=== PATIENT | male | born 2000 | race Caucasian/White ===

== ENCOUNTER 2021-09-02 11:16 | Emergency (ER) | payer OTHER, SELFPAY ==
[2021-09-02 11:19] VITALS: BP 149/77; PULSE 86; RESP 18; TEMP 36.6; O2SAT 99
[2021-09-02] MEDS: ONDANSETRON HCL ODT 4 MG TABLET PO (11:37)
[2021-09-02] MEDS: DICYCLOMINE HCL INJ 20 MG/2 ML VIAL IM (11:42)
--- NOTE | 2021-09-02 11:59 | ED.NAVMDI ---
HPI - Nausea/Vomiting/Diarrhea General Chief complaint: Nausea/Vomiting/Diarrhea Stated complaint: vomiting x 3 days after eating shrooms Time Seen by Provider: 09/02/21 11:21 History of Present Illness HPI Narrative: 20-year-old male presents the emergency room for evaluation of nausea or vomiting. States 3 days ago he was eating mushrooms, and developed nausea vomiting and abdominal pain. States he was seen at an outside emergency room yesterday and was rehydrated and sent home with antiemetics. Patient states now when he uses the Zofran it causes him to throw up. Related Data Allergies Allergy/AdvReac Type Severity Reaction Status Date / Time No Known Allergies Allergy Unverified 08/06/10 21:18 Review of Systems Review of Systems: CONSTITUTIONAL: Denies fever, chills, or sweats. EYES: Denies visual changes, redness, or discharge. ENT: Denies rhinorrhea, congestion, sore throat, or otalgia. CARDIOVASCULAR: Denies chest pain, palpitations, or edema. RESPIRATORY: Denies cough or dyspnea. GASTROINTESTINAL: Reports abdominal pain, nausea, vomiting, and diarrhea. GENITOURINARY: Denies dysuria or hematuria. SKIN: Denies rash or itching. MUSCULOSKELETAL: Denies back pain, joint pain, or myalgia. NEUROLOGIC: Denies headache, numbness, dizziness, or weakness. PSYCHIATRIC: Denies anxiety or depression. Exam Narrative: GENERAL: Well-appearing, well-nourished, no physical limitations, and in no acute distress. HEAD: Normocephalic, atraumatic. EYES: Conjunctivae normal, PERRLA and EOMI. CHEST: Clear to auscultation. No respiratory distress. No wheezes rales or rhonchi. No tenderness. HEART: Regular rate and rhythm. No murmur heard. Normal peripheral pulses. ABDOMEN: Soft, generalized diffuse tenderness, nondistended, normal active bowel sounds. EXTREMITIES: Normal range of motion. No edema. No clubbing or cyanosis SKIN: Warm, dry, no rash. No noted wounds NEURO: No focal deficits. Alert and oriented x3. MAEW. CN's II-XI intact bilaterally, normal gait PSYCH: Cooperative. Normal mood and affect. Course Vital Signs Vital signs: Vital Signs Temperature 36.6 C 09/02/21 11:19 Pulse Rate 86 09/02/21 11:19 Respiratory Rate 18 09/02/21 11:19 Blood Pressure 149/77 H 09/02/21 11:19 Pulse Oximetry 99 09/02/21 11:19 Oxygen Delivery Room Air 09/02/21 11:19 Temperature 36.6 C 09/02/21 11:19 Pulse Rate 86 09/02/21 11:19 Respiratory Rate 18 09/02/21 11:19 Blood Pressure 149/77 H 09/02/21 11:19 Pulse Oximetry 99 09/02/21 11:19 Oxygen Delivery Room Air 09/02/21 11:19 MDM - Nausea/Vomiting/Diarrhea Lab Data Result diagrams: 09/02/21 14:06 09/02/21 14:06 Labs: Lab Results 09/02/21 09/02/21 09/02/21 Range/Units 13:50 13:50 14:06 WBC 11.3 H (4.5-10.0) K/mm3 RBC 4.78 (4.6-6.20) M/mm3 Hgb 15.0 (14.0-18.0) g/dL Hct 42.4 (42.0-52.0) % MCV 88.7 (80-100) fl MCH 31.4 (26-34) pg MCHC 35.4 (32-36) g/dl RDW 12.0 (11.5-14.5) % Plt Count 252 (150-375) k/mm3 MPV 10.5 H (7.4-10.4) fl Immature Gran % (Auto) 0.4 (0-0.5) % Neut % (Auto) 81.4 H (45.5-73.1) % Lymph % (Auto) 12.5 L (18.3-44.2) % [place] % (Auto) 5.4 (2.6-8.5) % Eos % (Auto) 0.1 (0-4.4) % Baso % (Auto) 0.2 (0.2-1.2) % Lymph # (Auto) 1.41 (0.9-3.2) K/mm3 [place] # (Auto) 0.6 (0.1-0.6) K/mm3 Eos # (Auto) 0.0 (0-0.3) K/mm3 Baso # (Auto) 0.0 (0.0-0.1) K/mm3 Abs Immat Gran (auto) 0.04 H (0.00-0.031) K/mm3 Absolute Neuts (auto) 9.2 H (1.3-6.7) K/mm3 Absolute Nucleated RBC 0.0 (0.0-0.012) K/mm3 Nucleated RBC % 0.0 (0.0-0.2) % Sodium (137-145) mmol/L Potassium (3.4-5.0) mmol/L Chloride (98-107) mmol/L Carbon Dioxide (22-30) mmol/L Anion Gap (8-16) mmol/L BUN (9-20) mg/dL Creatinine (0.7-1.3) mg/dL Estim Creat Clear Calc Estimated GFR (59 - ) Glucose (65-1
[2021-09-02] MEDS: SODIUM CHLORIDE 0.9% IV 1,000 ML 999 ML IV CONT ×2 (12:07→14:52)
--- NOTE | 2021-09-02 12:54 | ECG_ITS ---
Measurements Intervals [place] Rate: 62 P: 71 GA: 141 QRS: -58 QRSD: 89 T: 56 QT: 432 QTc: 442 Interpretive Statements SINUS RHYTHM LEFT ANTERIOR FASCICULAR BLOCK CANNOT RULE OUT SEPTAL INFARCT, AGE INDETERMINATE BORDERLINE T WAVE ABNORMALITY- ANTERIOR LEADS ABNORMAL ECG Electronically Signed On 09-02-2021 16:07:21 CDT by Andrew Beth D.O.
[2021-09-02 14:11] LABS: Add Urine Microscopic? YES; Appearance Urine Clear (Clear); Bilirubin Urine 2+ (Negative); Blood Urine Negative (Negative); Color Urine Yellow (Yellow); Glucose Urine UA Negative (Negative); Ketones Urine 2+ mg/dL (Negative); Leukocyte Esterase Ur Negative LEU/UL (Negative); Nitrate Urine Negative (Negative); Protein Urine 1+ mg/dL (Negative); Specific Grav Ur >= 1.030 (1.001-1.035); Urobilinogen Urine 0.2 mg/dL (<2.0)
[2021-09-02] MEDS: diphenhydrAMINE HCl INJ 50 MG/ML VIAL 25 MG IV PUSH (14:16)
[2021-09-02] MEDS: METOCLOPRAMIDE HCL INJ 10 MG/2 ML VIAL IV PUSH (14:19)
[2021-09-02 14:22] LABS: Amphetamine Screen Urine Negative (Negative); Barbiturate Screen Urine Negative (Negative); Benzodiazepines Screen Urine Negative (Negative); Cannabinoid Screen Urine Positive (Negative); Cocaine Screen Urine Negative (Negative); Methadone Screen Urine Negative (Negative); Opiate Screen Urine Negative (Negative); Phencyclidine Screen Urine Negative (Negative)
[2021-09-02 14:28] LABS: Alanine Aminotransferase 14 U/L (6-50); Albumin Level 4.8 g/dL (3.5-5.1); Alkaline Phosphatase 67 U/L (38-126); Anion Gap 8 mmol/L (8-16); Aspartate Amino Transferase 30 U/L (17-59); Bilirubin,Total 1.3 mg/dL (0.2-1.3); Blood Urea Nitrogen 23 mg/dL (9-20); Carbon Dioxide 21 mmol/L (22-30); Chloride 109 mmol/L (98-107); Estimated Glomerular Filt Rate > 60; Glucose 105 mg/dL (65-110); Lipase 59 U/L (23-300); Potassium 3.7 mmol/L (3.4-5.0); Sodium 138 mmol/L (137-145)
[2021-09-02 14:28] LABS: Mucus Urine Heavy /lpf; RBC Urine 0-2 /hpf (0-2); WBC Urine 0-3 /hpf
[2021-09-02 14:31] LABS: Basophils Percent Auto 0.2 % (0.2-1.2); Eosinophils Percent Auto 0.1 % (0-4.4); Hematocrit 42.4 % (42.0-52.0); Immature Granulocyte Absolute 0.04 K/mm3 (0.00-0.031); Immature Granulocyte Percent A 0.4 % (0-0.5); Lymphocytes Absolute Auto 1.41 K/mm3 (0.9-3.2); Lymphocytes Percent Auto 12.5 % (18.3-44.2); Mean Corpuscular HGB Conc 35.4 g/dl (32-36); Mean Corpuscular Hemoglobin 31.4 pg (26-34); Mean Corpuscular Volume 88.7 fl (80-100); Mean Platelet Volume 10.5 fl (7.4-10.4); Monocytes Absolute Auto 0.6 K/mm3 (0.1-0.6); Monocytes Percent Auto 5.4 % (2.6-8.5); Neutrophils Absolute Auto 9.2 K/mm3 (1.3-6.7); Neutrophils Percent Auto 81.4 % (45.5-73.1); Platelet Count Result 252 k/mm3 (150-375); Red Blood Count 4.78 M/mm3 (4.6-6.20); White Blood Count 11.3 K/mm3 (4.5-10.0)
[2021-09-02] MEDS: HALOPERIDOL LACTATE 5 MG/ML VIAL 2 MG IV PUSH (14:52)
== END 2021-09-02 15:30 | disposition home or self-care (01) ==
PROVIDERS: Emergency Provider Nurse Practitioner Family; PCP Nurse Practitioner Family
DX: R11.2 Nausea with vomiting, unspecified (principal); F12.90 Cannabis use, unspecified, uncomplicated
CPT/HCPCS: 36415; 80053; 80307; 81001; 83690; 85025; 93005; 96361; 96372; 96374; 96375; 99284; A9270; J0500; J1200; J1630; J2765; J7030

== ENCOUNTER 2021-09-04 11:31 | Emergency (ER) | payer OTHER, SELFPAY ==
--- NOTE | ~2021-09-04 | CT_ITS ---
EXAMINATION: CT abdomen pelvis w con DATE: 09/04/2021 13:05 INDICATION: Right lower abdominal pain TECHNIQUE: Computed tomography (CT) of the abdomen and pelvis was performed with 100 mL Omnipaque-300 intravenous contrast. Automated exposure control and iterative reconstruction technique were employe d. The dose-length product was 200.37 mGy-cm. COMPARISON: None FINDINGS: Lung bases are clear. Heart size is normal. No pericardial or pleural effusion. Liver, gallbladder, s pleen, pancreas, bilateral adrenal glands and kidneys are normal. Instantly noted are accessory right renal artery supplying the lower pole of the right kidney. Bowels including the appendix are normal. Bladder is normal. No free intraperitoneal gas or fluid. No pathologically enlarged abdominal or pel andrew lymphadenopathy. Mild lumbar levocurvature. Bones are otherwise unremarkable. IMPRESSION: 1. Normal appendix. No acute abdominal/pelvic process. Reviewed, dictated and finalized at location B.
[2021-09-04 11:35] VITALS: BP 139/87; PULSE 72; RESP 18; TEMP 36.5; O2SAT 100
--- NOTE | 2021-09-04 12:17 | ECG_ITS ---
Measurements Intervals [place] Rate: 55 P: 71 IL: 150 QRS: -42 QRSD: 89 T: 51 QT: 441 QTc: 424 Interpretive Statements SINUS BRADYCARDIA LEFT AXIS DEVIATION BORDERLINE ECG Electronically Signed On 09-04-2021 12:53:54 CDT by Andrew Beth D.O.
[2021-09-04 12:20] LABS: Basophils Percent Auto 0.5 % (0.2-1.2); Eosinophils Absolute Auto 0.1 K/mm3 (0-0.3); Eosinophils Percent Auto 1.1 % (0-4.4); Hematocrit 42.1 % (42.0-52.0); Hemoglobin 15.2 g/dL (14.0-18.0); Immature Granulocyte Absolute 0.02 K/mm3 (0.00-0.031); Immature Granulocyte Percent A 0.3 % (0-0.5); Lymphocytes Absolute Auto 1.48 K/mm3 (0.9-3.2); Lymphocytes Percent Auto 22.7 % (18.3-44.2); Mean Corpuscular HGB Conc 36.1 g/dl (32-36); Mean Corpuscular Hemoglobin 31.3 pg (26-34); Mean Corpuscular Volume 86.8 fl (80-100); Mean Platelet Volume 10.2 fl (7.4-10.4); Monocytes Absolute Auto 0.5 K/mm3 (0.1-0.6); Monocytes Percent Auto 6.9 % (2.6-8.5); Neutrophils Absolute Auto 4.5 K/mm3 (1.3-6.7); Neutrophils Percent Auto 68.5 % (45.5-73.1); Platelet Count Result 236 k/mm3 (150-375); Red Blood Count 4.85 M/mm3 (4.6-6.20); Red Cell Distribution Width 11.7 % (11.5-14.5); White Blood Count 6.5 K/mm3 (4.5-10.0)
[2021-09-04] MEDS: LACTATED RINGERS 1,000 ML 999 ML IV CONT (12:24)
[2021-09-04 12:28] LABS: Alanine Aminotransferase 14 U/L (6-50); Albumin Level 4.8 g/dL (3.5-5.1); Alkaline Phosphatase 70 U/L (38-126); Anion Gap 7 mmol/L (8-16); Aspartate Amino Transferase 27 U/L (17-59); Bilirubin,Total 1.6 mg/dL (0.2-1.3); Blood Urea Nitrogen 16 mg/dL (9-20); Calcium 9.2 mg/dL (8.4-10.2); Carbon Dioxide 27 mmol/L (22-30); Chloride 103 mmol/L (98-107); Estimated CRCL calculation 102 ml/min; Estimated Glomerular Filt Rate > 60; Glucose 100 mg/dL (65-110); Lipase 56 U/L (23-300); Potassium 3.8 mmol/L (3.4-5.0); Sodium 137 mmol/L (137-145)
[2021-09-04] MEDS: HALOPERIDOL LACTATE 5 MG/ML VIAL IM (12:42)
--- NOTE | 2021-09-04 12:43 | ED.NAVMDI ---
HPI - Nausea/Vomiting/Diarrhea General Chief complaint: Nausea/Vomiting/Diarrhea Stated complaint: Vomiting/Nausea Time Seen by Provider: 09/04/21 12:02 Source: patient, RN notes reviewed and old records reviewed Mode of arrival: ambulatory Limitations: no limitations History of Present Illness HPI Narrative: This is a 20 year old male who presents for evaluation of nausea and vomiting. Patient states he took some shrooms 5 days ago. He states the next day he developed nausea and vomiting. He reports he has been having bilious emesis for 4 days. He developed right lower abdominal pain 2 days ago. He reports he mostly has pain when he is vomiting. He was evaluated at [place] 2 days ago and he states he had labs , CT . He was discharged. He states his PCP prescribed rectal antiemetic. Patient was also seen in [place] ED 2 days ago. He states he as been taking zofran without relief. He states he had rectal antiemetic at 7 am and he took zofran at 10 am. He reports he has episode of bilious emesis just prior to arrival. He denies fever, chills, diarrhea or urinary symptoms. He states he does smoke cannabis every day until his symptoms started. Related Data Allergies Allergy/AdvReac Type Severity Reaction Status Date / Time No Known Allergies Allergy Verified 09/04/21 11:38 Review of Systems Review of Systems: All systems reviewed & are unremarkable except as noted in HPI and below Constitutional: Constitutional: Denies chills, Denies fatigue and Denies fever(s) Gastrointestinal: Gastrointestinal: Reports abdominal pain, Denies diarrhea, Reports nausea and Reports vomiting Genitourinary: Genitourinary: Denies hematuria, Denies oliguria and Denies testicular pain Musculoskeletal: Musculoskeletal: Denies back pain [facility] Past Medical History Medical History (Updated 09/04/21 @ 13:51 by Radha Lakhani MD) Heart palpitations Exam Const: General: alert Nutritional Appearance: thin Orientation/consciousness: patient oriented x3 Limitations: no limitations HENMT: Head: normal to inspection Mouth: Yes Normal oral and palatal mucosa present Throat: posterior oropharynx normal Eyes: Pupils: Equal, round and reactive pupils present EOM: EOMs intact bilaterally Chest: Chest palpation & inspection: normal inspection of the chest Resp: Effort & Inspection: normal respiratory effort Auscultation: clear to auscultation bilaterally Cardio: Rate: regular rate Rhythm: regular rhythm Heart sounds: no murmurs GI: GI Palp: Yes Soft to palpation, Yes Tenderness to palpation present (GI) (Diffuse worse in RLQ), No Guarding due to palpation present (GI), No Rigid due to palpation and No Hernia present Auscultation: normal bowel sounds Back/Spine/Pelvis: Back: no CVA tenderness Skin: General skin exam: normal color Rashes: no rashes Wounds: no wounds Neuro: General: patient oriented x3 and CN's II-XI intact bilaterally Extrem: General: normal to inspection Psych: Mental Status: mental status grossly normal Affect: normal affect Attitude: cooperative Course Reevaluation(s) Reevaluation #1: PAtient states he is ready to go. He was able to hold water down. I offered to observe longer so we could make sure he has improved. HE states is ready for discharge. Date: 09/04/21 Time: 13:48 Vital Signs Vital signs: Vital Signs Temperature 97.7 F 09/04/21 11:35 Pulse Rate 72 09/04/21 11:35 Respiratory Rate 18 09/04/21 11:35 Blood Pressure 139/87 09/04/21 11:35 Pulse Oximetry 100 09/04/21 11:35 Oxygen Delivery Room Air 09/04/21 11:35 Temperature 97.7 F 09/04/21 11:35 Pulse Rate 60 09/04/21 13:08 Respiratory Rate 18 09/04/21 13:08 Blood Pressure 132/78 09/04/21 13:08 Pulse Oximetry 99 09/04/21 13:08 Oxygen Delivery Room Air 09/04/21 11:35 MDM - Nausea/Vomiting/Diarrhea Lab Data Result diagrams: 09/04/21 11:54 09/04/21 11:54 [place]
[2021-09-04] MEDS: PANTOPRAZOLE SODIUM IV 40 MG VIAL IV PUSH (13:07)
[2021-09-04 13:08] VITALS: BP 132/78; PULSE 60; RESP 18; O2SAT 99
[2021-09-04 13:46] LABS: Appearance Urine Clear (Clear); Bilirubin Urine 1+ (Negative); Blood Urine Negative (Negative); Color Urine Yellow (Yellow); Glucose Urine UA Negative (Negative); Ketones Urine 3+ mg/dL (Negative); Leukocyte Esterase Ur Negative LEU/UL (Negative); Nitrate Urine Negative (Negative); Protein Urine Negative (Negative); pH Urine 5.5 (5.0-9.0)
[2021-09-04 13:52] LABS: Mucus Urine Moderate /lpf; RBC Urine 0-2 /hpf (0-2); Squamous Epithelial Cell Urine Rare /hpf (Few)
[2021-09-04 13:56] LABS: Add Urine Microscopic? YES
== END 2021-09-04 14:00 | disposition home or self-care (01) ==
PROVIDERS: Emergency Medicine; Emergency Provider General Practice; PCP Nurse Practitioner Family
DX: R11.2 Nausea with vomiting, unspecified (principal); F12.90 Cannabis use, unspecified, uncomplicated
CPT/HCPCS: 36415; 74177; 80053; 81001; 83690; 85025; 93005; 96361; 96372; 96374; 99284; C9113; J1630; J7120; Q9967

== ENCOUNTER 2021-09-05 03:36 | Emergency (ER) | payer OTHER, SELFPAY ==
--- NOTE | ~2021-09-05 | CT_ITS ---
EXAMINATION: CT facial bones wo con DATE: 09/05/2021 04:19 INDICATION: Left jaw pain. TECHNIQUE: Computed tomography (CT) of the facial bones and maxillofacial region was performed withou t intravenous contrast. Automated exposure control and iterative reconstruction technique were employ ed. The dose-length product was 367.77 mGy-cm. COMPARISON: None. FINDINGS: There is mild mucosal thickening in the paranasal sinuses. Bone alignment is normal. No fra cture. The teeth are unremarkable. The major salivary glands are unremarkable. The orbits are normal. IMPRESSION: 1. No etiology for the patient's symptoms. Reviewed, dictated and finalized at location A.
[2021-09-05 03:39] VITALS: BP 130/81; PULSE 68; RESP 14; TEMP 36.4; O2SAT 100
[2021-09-05 04:08] LABS: Basophils Percent Auto 0.3 % (0.2-1.2); Eosinophils Absolute Auto 0.1 K/mm3 (0-0.3); Eosinophils Percent Auto 1.8 % (0-4.4); Hematocrit 41.1 % (42.0-52.0); Hemoglobin 14.2 g/dL (14.0-18.0); Immature Granulocyte Absolute 0.02 K/mm3 (0.00-0.031); Immature Granulocyte Percent A 0.3 % (0-0.5); Lymphocytes Absolute Auto 1.33 K/mm3 (0.9-3.2); Mean Corpuscular HGB Conc 34.5 g/dl (32-36); Mean Corpuscular Hemoglobin 30.5 pg (26-34); Mean Corpuscular Volume 88.2 fl (80-100); Mean Platelet Volume 10.1 fl (7.4-10.4); Monocytes Absolute Auto 0.6 K/mm3 (0.1-0.6); Monocytes Percent Auto 8.7 % (2.6-8.5); Neutrophils Absolute Auto 4.6 K/mm3 (1.3-6.7); Neutrophils Percent Auto 68.9 % (45.5-73.1); Platelet Count Result 231 k/mm3 (150-375); Red Blood Count 4.66 M/mm3 (4.6-6.20); Red Cell Distribution Width 11.8 % (11.5-14.5); White Blood Count 6.6 K/mm3 (4.5-10.0)
[2021-09-05 04:17] LABS: Anion Gap 7 mmol/L (8-16); Blood Urea Nitrogen 16 mg/dL (9-20); Calcium 8.9 mg/dL (8.4-10.2); Carbon Dioxide 27 mmol/L (22-30); Chloride 104 mmol/L (98-107); Estimated CRCL calculation 113 ml/min; Estimated Glomerular Filt Rate > 60; Glucose 107 mg/dL (65-110); Magnesium 2.2 mg/dL (1.6-2.3); Potassium 3.6 mmol/L (3.4-5.0); Sodium 138 mmol/L (137-145)
[2021-09-05] MEDS: diazePAM INJ (*CRX) 10 MG/2 ML SYRINGE 5 MG IV PUSH (04:36)
--- NOTE | 2021-09-05 04:53 | ED.GENADULT ---
HPI - General Adult General Chief complaint: Dental/Oral Stated complaint: jaw muscle spasms Time Seen by Provider: 09/05/21 03:41 History of Present Illness HPI narrative: Who presents ER with pain in his left jaw. Is been going on over the last few hours. It causes his jaw to shift to the right side. No dental pain. Patient has been having illness over the last few days and he's had multiple episodes of vomiting. The vomiting is since stopped. He was seen in the ER yesterday and had unremarkable lab work. He is having no chest pain or chest pressure. No fevers or chills or sweats. Has not found alleviating factors for his pain and jaw shifting with the exception of when he is biting on a towel. Related Data Home Medications Medication Instructions Recorded Confirmed propranolol 10 mg tablet 1 tablet PO BID 09/05/21 09/05/21 Allergies Allergy/AdvReac Type Severity Reaction Status Date / Time No Known Allergies Allergy Verified 09/04/21 11:38 Review of Systems Review of Systems: All systems reviewed & are unremarkable except as noted in HPI and below Constitutional: Constitutional: Denies chills and Denies fever(s) ENT: Denies dysphagia and Denies sore throat Comments: Jaw pain Gastrointestinal: Gastrointestinal: Denies abdominal pain, Denies nausea and Denies vomiting Musculoskeletal: Musculoskeletal: Denies arthralgias, Denies joint swelling and Reports muscle cramps PMFSH Past Medical History Medical History (Updated 09/05/21 @ 05:51 by Galdino Tatum MD) Heart palpitations Surgical History Surgical History (Updated 09/05/21 @ 05:48 by Galdino Tatum MD) No pertinent past surgical history Exam Narrative: GENERAL: Well-appearing, well-nourished, and in no acute distress. HEAD: Normocephalic, atraumatic. ENT: Mucous membranes moist. No dental abscess or tenderness. Patient's lower jaw shows the right side on its own. She is able to perform range of motion of the jaw without palpable dislocation of the mandible. NECK: Supple. CHEST: Clear to auscultation. No respiratory distress. HEART: Regular rate and rhythm. Normal peripheral pulses. EXTREMITIES: Normal range of motion. No edema. NEURO: Alert and oriented x3. PSYCH: Normal mood and affect. Course Course Emergency Course: Patient resting comfortably informed of results. Patient feels better after Valium for spasm. 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 Will treat with anti-inflammatories and muscle x-rays at home. Patient will be discharged when his CT scan is read. Vital Signs Vital signs: Vital Signs Temperature 97.6 F 09/05/21 03:39 Pulse Rate 68 09/05/21 03:39 Respiratory Rate 14 09/05/21 03:39 Blood Pressure 130/81 09/05/21 03:39 Pulse Oximetry 100 09/05/21 03:39 Oxygen Delivery Room Air 09/05/21 03:39 Temperature 97.6 F 09/05/21 03:39 Pulse Rate 68 09/05/21 03:39 Respiratory Rate 14 09/05/21 03:39 Blood Pressure 130/81 09/05/21 03:39 Pulse Oximetry 100 09/05/21 03:39 Oxygen Delivery Room Air 09/05/21 03:39 Medical Decision Making Vital Signs Vital Signs: Vital Signs Temperature 97.6 F 09/05/21 03:39 Pulse Rate 68 09/05/21 03:39 Respiratory Rate 14 09/05/21 03:39 Blood Pressure 130/81 09/05/21 03:39 Pulse Oximetry 100 09/05/21 03:39 Oxygen Delivery Room Air 09/05/21 03:39 Temperature 97.6 F 09/05/21 03:39 Pulse Rate 68 09/05/21 03:39 Respiratory Rate 09/05/21 03:39 Blood Pressure 130/81 09/05/21 03:39 Pulse Oximetry 100 09/05/21 03:39 Oxygen Delivery Room Air 09/05/21 03:39 Lab Data Result diagrams: 09/05/21 04:02 09/05/21 04:02 Labs: Lab Results 09/05/21 09/05/21 Range/Units 04:02 04:02 WBC 6.6 (4.5-10.0) K/mm3 RBC 4.66 (4.6-6.20) M/mm3 Hgb 14.2 (14.0-18.0) g/dL Hct 41.1 L
[2021-09-05 06:06] VITALS: BP 127/85; PULSE 66; RESP 16; O2SAT 98
== END 2021-09-05 06:08 | disposition home or self-care (01) ==
PROVIDERS: Emergency Provider Emergency Medicine; PCP Nurse Practitioner Family
DX: M26.609 Unspecified temporomandibular joint disorder, unspecified side (principal); M62.838 Other muscle spasm
CPT/HCPCS: 36415; 70486; 80048; 83735; 85025; 96374; 99284; J3360

== ENCOUNTER 2022-03-13 17:41 | Emergency (ER) | payer OTHER, SELFPAY ==
--- NOTE | ~2022-03-13 | CT_ITS ---
EXAMINATION: CT abdomen pelvis w con DATE: 03/13/2022 20:48 INDICATION: Nausea and vomiting. Epigastric abdominal pain. TECHNIQUE: Computed tomography (CT) of the abdomen and pelvis was performed with 100 mL Omnipaque 350 intravenous contrast. Automated exposure control and iterative reconstruction technique were employe d. The dose-length product was 217.15 mGy-cm. COMPARISON: CT abdomen and pelvis 09/04/2021 FINDINGS: The visualized portions of the lung bases are clear without pneumonia or pleural effusion. The heart size is normal. No pericardial effusion. The liver, gallbladder, spleen, pancreas, adrenal glands, and kidneys are normal. There are no dilated loops of bowel. The appendix is normal. There ar e no pathologically enlarged lymph nodes. There is no free intraperitoneal fluid. There is a subcutan eous implant in anterior chest wall. The bones are unremarkable. IMPRESSION: 1. No etiology for the patient's symptoms. Reviewed, dictated and finalized at location A. HIATRY ADULT PHYSICIAN
[2022-03-13 17:45] VITALS: BP 120/71; PULSE 66; RESP 18; TEMP 36.3; O2SAT 98
--- NOTE | 2022-03-13 18:40 | ED.NAVMDI ---
HPI - Nausea/Vomiting/Diarrhea General Chief complaint: Nausea/Vomiting/Diarrhea Stated complaint: N/V SINCE 1100 Time Seen by Provider: 03/13/22 18:08 History of Present Illness HPI Narrative: 21-year-old male presents to the emergency room for sudden onset of nausea and vomiting. States last night he had some [place] food a, and believes that may be the culprit. Has had multiple episodes of nonbilious nonbloody vomiting since this morning. Also complains of abdominal cramping and body aches. Denies fevers. Denies diarrhea or constipation. Related Data Home Medications Medication Instructions Recorded Confirmed propranolol 10 mg tablet 1 tablet PO BID 09/05/21 09/05/21 Allergies Allergy/AdvReac Type Severity Reaction Status Date / Time No Known Allergies Allergy Verified 09/04/21 11:38 Review of Systems Review of Systems: CONSTITUTIONAL: Denies fever, chills, or sweats. EYES: Denies visual changes, redness, or discharge. ENT: Denies rhinorrhea, congestion, sore throat, or otalgia. CARDIOVASCULAR: Denies chest pain, palpitations, or edema. RESPIRATORY: Denies cough or dyspnea. GASTROINTESTINAL: Reports nausea vomiting GENITOURINARY: Denies dysuria or hematuria. SKIN: Denies rash or itching. MUSCULOSKELETAL: Denies back pain, joint pain, or myalgia. NEUROLOGIC: Denies headache, numbness, dizziness, or weakness. PSYCHIATRIC: Denies anxiety or depression. PMFSH Past Medical History Medical History Heart palpitations Surgical History Surgical History No pertinent past surgical history Exam Narrative: GENERAL: ill-appearing, well-nourished, no physical limitations, and in no acute distress. HEAD: Normocephalic, atraumatic. EYES: Conjunctivae normal, PERRLA and EOMI. CHEST: Clear to auscultation. No respiratory distress. No wheezes rales or rhonchi. HEART: Regular rate and rhythm. No murmur heard. Normal peripheral pulses. ABDOMEN: Soft, nontender, nondistended, normal active bowel sounds. EXTREMITIES: Normal range of motion. No edema. No clubbing or cyanosis SKIN: Warm, dry, no rash. No noted wounds NEURO: No focal deficits. Alert and oriented x3. MAEW. CN's II-XI intact bilaterally PSYCH: Cooperative. Normal mood and affect. Course Vital Signs Vital signs: Vital Signs Temperature 36.3 C L 03/13/22 17:45 Pulse Rate 66 03/13/22 17:45 Respiratory Rate 18 03/13/22 17:45 Blood Pressure 120/71 03/13/22 17:45 Pulse Oximetry 98 03/13/22 17:45 Oxygen Delivery Room Air 03/13/22 17:45 Temperature 36.3 C L 03/13/22 17:45 Pulse Rate 75 03/13/22 21:01 Respiratory Rate 18 03/13/22 21:01 Blood Pressure 124/7 L 03/13/22 21:01 Pulse Oximetry 98 03/13/22 21:01 Oxygen Delivery Room Air 03/13/22 17:45 MDM - Nausea/Vomiting/Diarrhea Lab Data 03/13/22 18:37 03/13/22 18:37 Labs: Lab Results 03/13/22 03/13/22 Range/Units 18:37 18:37 WBC 15.6 H (4.5-10.0) K/mm3 RBC 5.50 (4.6-6.20) M/mm3 Hgb 17.2 D (14.0-18.0) g/dL Hct 49.4 (42.0-52.0) % MCV 89.8 (80-100) fl MCH 31.3 (26-34) pg MCHC 34.8 (32-36) g/dl RDW 11.8 (11.5-14.5) % Plt Count 303 (150-375) k/mm3 MPV 10.3 (7.4-10.4) fl Immature Gran % (Auto) 0.4 (0-0.5) % Neut % (Auto) 82.3 H (45.5-73.1) % Lymph % (Auto) 11.8 L (18.3-44.2) % [place] % (Auto) 4.4 (2.6-8.5) % Eos % (Auto) 0.8 (0-4.4) % Baso % (Auto) 0.3 (0.2-1.2) % Lymph # (Auto) 1.85 (0.9-3.2) K/mm3 [place] # (Auto) 0.7 H (0.1-0.6) K/mm3 Eos # (Auto) 0.1 (0-0.3) K/mm3 Baso # (Auto) 0.0 (0.0-0.1) K/mm3 Abs Immat Gran (auto) 0.07 H (0.00-0.031) K/mm3 Absolute Neuts (auto) 12.9 H (1.3-6.7) K/mm3 Absolute Nucleated RBC 0.0 (0.0-0.012) K/mm3 Nucleated RBC % 0.0 (0.0-0.2) % Sodium 141 (137-145) mmol/L Potassium 3.7 (3.4-5.0)
[2022-03-13] MEDS: PANTOPRAZOLE SODIUM IV 40 MG VIAL IV PUSH (18:45)
[2022-03-13] MEDS: DICYCLOMINE HCL INJ 20 MG/2 ML VIAL IM (18:45)
[2022-03-13] MEDS: SODIUM CHLORIDE 0.9% IV 1,000 ML 999 ML IV CONT ×2 (18:45→20:51)
[2022-03-13] MEDS: ONDANSETRON INJ 4 MG/2 ML VIAL IV PUSH ×2 (18:45→20:52)
[2022-03-13 18:48] LABS: Basophils Percent Auto 0.3 % (0.2-1.2); Eosinophils Absolute Auto 0.1 K/mm3 (0-0.3); Eosinophils Percent Auto 0.8 % (0-4.4); Hematocrit 49.4 % (42.0-52.0); Hemoglobin 17.2 g/dL (14.0-18.0); Immature Granulocyte Absolute 0.07 K/mm3 (0.00-0.031); Immature Granulocyte Percent A 0.4 % (0-0.5); Lymphocytes Absolute Auto 1.85 K/mm3 (0.9-3.2); Lymphocytes Percent Auto 11.8 % (18.3-44.2); Mean Corpuscular HGB Conc 34.8 g/dl (32-36); Mean Corpuscular Hemoglobin 31.3 pg (26-34); Mean Corpuscular Volume 89.8 fl (80-100); Mean Platelet Volume 10.3 fl (7.4-10.4); Monocytes Absolute Auto 0.7 K/mm3 (0.1-0.6); Monocytes Percent Auto 4.4 % (2.6-8.5); Neutrophils Absolute Auto 12.9 K/mm3 (1.3-6.7); Neutrophils Percent Auto 82.3 % (45.5-73.1); Platelet Count Result 303 k/mm3 (150-375); Red Cell Distribution Width 11.8 % (11.5-14.5); White Blood Count 15.6 K/mm3 (4.5-10.0)
[2022-03-13 19:01] LABS: Alanine Aminotransferase 16 U/L (6-50); Albumin Level 4.9 g/dL (3.5-5.1); Alkaline Phosphatase 88 U/L (38-126); Anion Gap 10 mmol/L (8-16); Aspartate Amino Transferase 24 U/L (17-59); Bilirubin,Total 0.9 mg/dL (0.2-1.3); Blood Urea Nitrogen 13 mg/dL (9-20); Carbon Dioxide 25 mmol/L (22-30); Chloride 106 mmol/L (98-107); Estimated CRCL calculation 101 ml/min; Estimated Glomerular Filt Rate > 60; Glucose 153 mg/dL (65-110); Lipase 49 U/L (23-300); Potassium 3.7 mmol/L (3.4-5.0); Sodium 141 mmol/L (137-145)
[2022-03-13] MEDS: METOCLOPRAMIDE HCL INJ 10 MG/2 ML VIAL IV PUSH (19:55)
[2022-03-13] MEDS: diphenhydrAMINE HCl INJ 50 MG/ML VIAL 25 MG IV PUSH (19:55)
[2022-03-13 21:01] VITALS: BP 124/7; PULSE 75; RESP 18; O2SAT 98
== END 2022-03-13 21:28 | disposition home or self-care (01) ==
PROVIDERS: Emergency Provider Nurse Practitioner Family; PCP Nurse Practitioner Family
DX: K52.9 Noninfective gastroenteritis and colitis, unspecified (principal)
CPT/HCPCS: 36415; 74177; 80053; 83690; 85025; 96361; 96372; 96374; 96375; 96376; 99284; C9113; J0500; J1200; J2405; J2765; J7030; Q9967

== ENCOUNTER 2024-08-27 15:20 | Emergency (ER) | payer OTHER, SELFPAY ==
--- NOTE | ~2024-08-27 | CT_ITS ---
EXAMINATION: CT abdomen pelvis w con DATE: 08/27/2024 17:03 INDICATION: lower abd pain TECHNIQUE: Computed tomography (CT) of the abdomen and pelvis was performed with 100 mL Omnipaque-350 intravenous contrast. Automated exposure control and iterative reconstruction technique were employe d. The dose-length product was 184.23 mGy-cm. COMPARISON: 03/13/2022, 09/04/2021. FINDINGS: Lower thorax: Unremarkable Liver: Mildly enlarged. Periportal edema. Biliary/Gallbladder: Gallbladder is normal. No bile duct dilation. Pancreas: No mass or duct dilation. Spleen: Normal. Adrenals:No mass. Kidneys: No suspicious mass, obstructing stone, or hydronephrosis. GI tract: Mild distal esophageal and gastric wall edema. Mild transverse and descending colonic wall edema. No small or large bowel dilation. Normal appendix. Mesentery/Peritoneum: No ascites, mass, or free air. Retroperitoneum: No mass. Pelvis: Pelvic organs are within normal limits. Soft Tissues: Soft tissues and body wall unremarkable. Bones: No acute osseous finding. IMPRESSION: Mild hepatomegaly with periportal edema, correlate with liver labs. Mild esophagitis/gastritis. Transverse and descending colonic wall edema as can be seen with colitis. Reviewed, dictated and finalized at location [facility].
[2024-08-27 15:21] VITALS: BP 114/80; PULSE 82; RESP 16; TEMP 36.6; O2SAT 100
[2024-08-27] MEDS: SODIUM CHLORIDE 0.9% IV 1,000 ML 999 ML (15:49)
[2024-08-27 15:51] LABS: Hematocrit 45.7 % (42.0-52.0); Hemoglobin 15.4 g/dL (14.0-18.0); Immature Granulocyte Percent A 0.2 % (0-0.5); Lymphocytes Absolute Auto 2.28 K/mm3 (0.9-3.2); Mean Corpuscular HGB Conc 33.7 g/dl (32-36); Mean Corpuscular Hemoglobin 30.1 pg (26-34); Mean Corpuscular Volume 89.4 fl (80-100); Nucleated Red Blood Cells Absolute Auto 0.000 K/mm3 (0.0-0.012); Nucleated Red Blood Cells Perc 0.0 % (0.0-0.2); Platelet Count Result 257 k/mm3 (150-375); Red Blood Count 5.11 M/mm3 (4.6-6.20); White Blood Count 6.4 K/mm3 (4.5-10.0)
[2024-08-27 15:55] LABS: Add Urine Microscopic? NO; Appearance Urine Clear (Clear); Glucose Urine UA Negative (Negative); Leukocyte Esterase Ur Negative LEU/UL (Negative); Nitrate Urine Negative (Negative); Specific Grav Ur 1.023 (1.001-1.035)
--- NOTE | 2024-08-27 16:02 | PC.NURSE ---
Pt sitting up in chair and SLN initiated along with lab and he became diaphoretic and stated I don't feel good. Informed pt to lay head back into wall and breathe through his nose and out his mouth, skin was very pale, warm and wet from sweating. BP taken and was 89/48. Pt was able to stand and pivot onto cot
[2024-08-27 16:03] LABS: Alanine Aminotransferase 14 U/L (6-50); Albumin Level 4.8 g/dL (3.5-5.1); Alkaline Phosphatase 49 U/L (38-126); Anion Gap 9 mmol/L (4-12); Aspartate Amino Transferase 29 U/L (17-59); Bilirubin,Total 0.7 mg/dL (0.2-1.3); Blood Urea Nitrogen 16 mg/dL (9-20); Calcium 10.0 mg/dL (8.4-10.2); Carbon Dioxide 28 mmol/L (22-30); Chloride 103 mmol/L (98-107); Estimated CRCL calculation 99 ml/min; Estimated Glomerular Filt Rate > 60; Glucose 90 mg/dL (65-110); Lipase 81 U/L (23-300); Potassium 4.1 mmol/L (3.4-5.0); Sodium 140 mmol/L (137-145); Total Protein 8.1 g/dL (6.3-8.2)
[2024-08-27 16:10] VITALS: BP 89/62; PULSE 113; RESP 12; O2SAT 97
[2024-08-27 16:30] VITALS: BP 107/63; PULSE 58; RESP 12; TEMP 36.7; O2SAT 97
[2024-08-27] MEDS: SODIUM CHLORIDE 0.9% IV 1,000 ML 999 ML IV CONT (16:33)
--- NOTE | 2024-08-27 16:47 | ECG_ITS ---
Test Date: 2024-08-27 17:56:50 Measurements Intervals [place] Rate: 58 P: 60 IL: 178 QRS: -38 QRSD: 88 T: 56 QT: 421 QTc: 416 Interpretive Statements SINUS BRADYCARDIA WITH SINUS ARRHYTHMIA LEFT AXIS DEVIATION [QRS AXIS < -30] No previous ECG available for comparison Electronically Signed On 08-28-2024 22:31:54 CDT by Allison Bartlett M.D.
[2024-08-27] MEDS: KETOROLAC 15 MG/ML VIAL (*BKC) IV PUSH (17:04)
--- NOTE | 2024-08-27 17:16 | ED_ITS ---
HPI - Abdominal Pain General Chief Complaint: Abdominal Pain Stated Complaint: abdominal pain Time Seen by Provider: 08/27/24 15:41 History of Present Illness HPI narrative: 23-year-old male presents to emergency department for abdominal pain for the past 4 days. Patient states the pain starts just beneath his umbilicus and radiates to his lower abdomen. Describes it as a burning sensation that is worse after eating or drinking, especially spicy foods. He reports loose stools with intermittent diarrhea for several weeks. Denies fevers, nausea and vomiting, melena and hematochezia. No prior abdominal surgeries. Denies dysuria or hematuria. Patient had a vasovagal reaction while getting an IV placed in triage. States he was standing at the blood tubes when he became nauseous, cool, clammy and lightheaded. He did not lose consciousness. Related Data Home Medications ?Medication ?Instructions ?Recorded ?Confirmed ?Last Taken ?Type propranolol 10 mg tablet 1 tablet PO BID 09/05/21 09/05/21 08/30/21 History Allergies Allergy/AdvReac Type Severity Reaction Status Date / Time No Known Allergies Allergy Verified 09/04/21 11:38 Review of Systems 2 Review of Systems: All systems reviewed & are unremarkable except as noted in HPI and below PMFSH Past Medical History Medical History Heart palpitations Surgical History Surgical History No pertinent past surgical history Exam 2 Narrative: GENERAL: Well-appearing, well-nourished, and in no acute distress. HEAD: Normocephalic, atraumatic. EYES: EOMI. ENT: Nares clear, no rhinorrhea or epistaxis. Mucous membranes moist. NECK: Supple. CHEST: Clear to auscultation. No respiratory distress. HEART: Regular rate and rhythm. No murmur heard. Normal peripheral pulses. ABDOMEN: Normoactive bowel sounds. Abdomen soft with minimal tenderness to the bilateral lower quadrants. No rebound or rigidity. No CVA tenderness. EXTREMITIES: Normal range of motion. No edema. SKIN: Warm, dry, no rash. NEURO: No focal deficits. Alert and oriented x3 Course Vital Signs Vital signs: Vital Signs Temperature 97.8 F 08/27/24 15:21 Pulse Rate 82 08/27/24 15:21 Respiratory Rate 16 08/27/24 15:21 Blood Pressure 114/80 08/27/24 15:21 Pulse Oximetry 100 08/27/24 15:21 Oxygen Delivery Room Air 08/27/24 15:21 Temperature 98.1 F 08/27/24 17:59 Pulse Rate 58 L 08/27/24 17:59 Respiratory Rate 16 08/27/24 17:59 Blood Pressure 102/53 L 08/27/24 17:59 Pulse Oximetry 99 08/27/24 17:59 Oxygen Delivery Room Air 08/27/24 15:21 MDM - Abdominal Pain MDM Narrative Medical decision making narrative: 23-year-old male presents emergency department for abdominal pain for the past 4 days. Vitals are stable. Patient is afebrile and nontoxic appearing. Exam is notable for the above. Patient did have a vasovagal reaction while having an IV placed in triage. He was reportedly looking at the blood tubes when he became cool, clammy, lightheaded and pale. He did not lose consciousness. He did transiently become hypotensive but his blood pressure has since improved after L of fluids. On my evaluation patient is resting comfortably in exam bed. Lab work shows no leukocytosis or anemia. Chemistries are unremarkable. UA is unremarkable. EKG shows sinus bradycardia with rate of 58 ppm, no acute ischemic changes. CT abdomen pelvis shows mild hepatomegaly with periportal edema. His LFTs are within normal limits and lipase is normal. CT shows mild esophagitis/gastritis and transverse and descending colonic wall edema as can be seen with colitis. Patient updated on results. He received IV fluids and Toradol with improvement. He remains resting comfortably in exam bed. Presentation consistent with colitis. Will start him on ciprofloxacin and Flagyl. Will also start Pepcid for gastritis/esophagitis and encouraged refraining from spicy foods and NSAIDs. Also advised to follow-up closely regarding our findings on CT. He has no tenderness to upper quadrant exam. His presyncopal reaction is very consistent with vasovagal he responds. I advised patient to follow-up with his PCP discussed strict ED return precautions. He is agreeable with the plan and verbalized understanding. Discharged in stable condition. Lab Data 08/27/24 15:41 08/27/24 15:41 Labs: Lab Results 07/06/25 Range/Units 15:41 WBC 6.4 (4.5-10.0) K/mm3 RBC 5.11 (4.6-6.20) M/mm3 Hgb 15.4 (14.0-18.0) g/dL Hct 45.7 (42.0-52.0) % MCV 89.4 (80-100) fl MCH 30.1 (26-34) pg MCHC 33.7 (32-36) g/dl RDW 11.8 (11.5-14.5) % Plt Count 257 (150-375) k/mm3 MPV 9.7 (7.4-10.4) fl Immature Gran % (Auto) 0.2 (0-0.5) % Neut % (Auto) 53.6 (45.5-73.1) % Lymph % (Auto) 35.5 (18.3-44.2) % [place] % (Auto) 6.4 (2.6-8.5) % Eos % (Auto) 3.7 (0-4.4) % Baso % (Auto) 0.6 (0.2-1.2) % Lymph # (Auto) 2.28 (0.9-3.2) K/mm3 [place] # (Auto) 0.4 (0.1-0.6) K/mm3 Eos # (Auto) 0.2 (0-0.3) K/mm3 Baso # (Auto) 0.0 (0.0-0.1) K/mm3 Abs Immat Gran (auto) 0.01 (0.00-0.031) K/mm3 Absolute Neuts (auto) 3.5 (1.3-6.7) K/mm3 Absolute Nucleated RBC 0.000 (0.0-0.012) K/mm3 Nucleated RBC % 0.0 (0.0-0.2) % Sodium 140 (137-145) mmol/L Potassium 4.1 (3.4-5.0) mmol/L Chloride 103 (98-107) mmol/L Carbon Dioxide 28 (22-30) mmol/L Anion Gap 9 (4-12) mmol/L BUN 16 (9-20) mg/dL Creatinine 0.90 (0.7-1.3) mg/dL Estim Creat Clear Calc 99 ml/min Estimated GFR > 60 (59 - ) Glucose 90 (65-110) mg/dL POC Capillary Glucose 93 (65-105) mg/dl Calcium 10.0 (8.4-10.2) mg/dL Total Bilirubin 0.7 (0.2-1.3) mg/dL AST 29 (17-59) U/L ALT 14 (6-50) U/L Alkaline Phosphatase 49 (38-126) U/L Total Protein 8.1 (6.3-8.2) g/dL Albumin 4.8 (3.5-5.1) g/dL Lipase 81 (23-300) U/L Urine Color Yellow (Yellow) Urine Appearance Clear (Clear) Urine pH 5.5 (5.0-9.0) Ur Specific [place] 1.023 (1.001-1.035) Urine Protein Negative (Negative) mg/dL Urine Glucose (UA) Negative (Negative) mg/dL Urine Ketones Negative (Negative) mg/dL Ur Blood (Man) Negative (Negative) Urine Nitrate Negative (Negative) Urine Bilirubin Negative (Negative) Urine Urobilinogen 0.2 (<2.0) mg/dL Leukocyte Esterase Rfl Negative (Negative) SOFIA/UL Imaging Data Radiologist's impression: ITS Impressions Abdomen/Pelvis CT 08/27/24 17:41 IMPRESSION: Mild hepatomegaly with periportal edema, correlate with liver labs. Mild esophagitis/gastritis. Transverse and descending colonic wall edema as can be seen with colitis. Discharge Plan Discharge Clinical Impression: Colitis, Vasovagal reaction, Hepatomegaly Gastritis Qualifiers: Gastritis type: unspecified gastritis Chronicity: unspecified Gastritis bleeding: without bleeding Qualified Code(s): K29.70 - Gastritis, unspecified, without bleeding Patient Disposition: Home Condition: Stable Instructions: Antibiotic Form, Gastritis (DC), Diet for Stomach Ulcers and Gastritis (ED), Colitis (ED) Additional Instructions: Your evaluated in the emergency department for abdominal pain. Your found to have colitis on her CT scan which discussed presentation. Please take the antibiotics as directed. Incidentally your found to have inflammation of your stomach and esophagus. Your prescribed Pepcid for this. Please refrain from medications called NSAID such as ibuprofen, Advil, Motrin, Aleve, naproxen. Please refrain from alcohol and spicy foods. Incidentally your also found to have mild enlargement of your liver with surrounding swelling. Please follow-up closely with your primary care provider. Return to the emergency department if you develop fever, worsening abdominal pain, you are unable to tolerate food or fluids, or other concerning symptoms. Patient Language: Divehi Prescriptions: New ciprofloxacin HCl 500 mg tablet 500 mg PO Q12H Qty: 10 0RF metronidazole 500 mg tablet 500 mg PO Q12H Qty: 10 0RF famotidine 20 mg tablet 20 mg PO DAILY Qty: 14 0RF No Action pantoprazole [Protonix] 40 mg tablet,delayed release (DR/EC) 40 mg PO QAM 28 Days Qty: 28 0RF propranolol 10 mg tablet 1 tablet PO BID cyclobenzaprine 10 mg tablet 10 mg PO TID PRN (Reason: muscle spasm) Qty: 14 0RF ibuprofen 600 mg tablet 600 mg PO TID Qty: 20 0RF ondansetron 4 mg tablet,disintegrating 4 mg PO Q8H Qty: 14 0RF Follow-up/Referrals: Hill,NIURKA Randall [Primary Care Provider] -
[2024-08-27 17:59] VITALS: BP 102/53; PULSE 58; RESP 16; TEMP 36.7; O2SAT 99
[2024-08-27 19:00] VITALS: BP 108/54; PULSE 62; RESP 16; TEMP 36.4; O2SAT 98
== END 2024-08-27 19:02 | disposition home or self-care (01) ==
PROVIDERS: Emergency Medicine; Emergency Provider Physician Assistant; PCP Nurse Practitioner Family
DX: K52.9 Noninfective gastroenteritis and colitis, unspecified (principal); R55 Syncope and collapse; R16.0 Hepatomegaly, not elsewhere classified; K29.70 Gastritis, unspecified, without bleeding
CPT/HCPCS: 36415; 74177; 80053; 81003; 82948; 83690; 85025; 93005; 96361; 96374; 99284; J1885; J7030; Q9967

== ENCOUNTER 2024-09-07 13:27 | Observation (INO) | payer OTHER, SELFPAY ==
[2024-09-07] VITALS (8 sets, daily range): BP systolic 91–119; BP diastolic 42–74; PULSE 64–112; RESP 13–20; TEMP 36.4–37; O2SAT 91–100; BMI 18.6; BMI 18.1
--- NOTE | ~2024-09-07 | CT_ITS ---
CT abdomen pelvis w con Ordering provider: Obdulia Gallegos PA-C History: 23 years Male with . lower abd pain, N/V/D . Comparison: August 27, 2024 Technique: CT abdomen and pelvis with IV and without oral contrast. Automated exposure control and it erative reconstruction technique were employed. The dose-length product was 194.25 mGy-cm. 100 mL Omn ipaque 350 was given IV. Findings: VISUALIZED LOWER CHEST: Normal. UPPER ABDOMINAL ORGANS: Liver: Hepatomegaly. Periportal edema is again demonstrated with lesser degree than the previous stud y Gallbladder: Normal. Spleen: Normal. Stomach/duodenum: Normal. Pancreas: Normal. Adrenals: Normal. Kidneys: Normal. PELVIC ORGANS: The bladder is normal. BOWEL AND MESENTERY: Colon: No evidence of diverticulitis.. Minimal fat stranding seen adjacent to the descending colon wh ich may indicate colitis. Follow-up advised.Appendix is not demonstrated. Small Bowel: Normal. No obstruction. Peritoneum/mesentery: No free air or free fluid. No mesenteric lymphadenopathy. RETROPERITONEUM: Normal aorta. No retroperitoneal lymphadenopathy. MUSCULOSKELETAL: Superficial soft tissues: The superficial soft tissues are normal. Bones: Normal spine. IMPRESSION: 1. No evidence of appendicitis, diverticulitis or intestinal obstruction. 2. Hepatomegaly. 3. Minimal fat stranding in the left paracolic gutter which may indicate colitis. Clinical correlati on and follow-up advise Reviewed, dictated and finalized at location A. IMPRESSION: 1. No evidence of appendicitis, diverticulitis or intestinal obstruction. 2. Hepatomegaly. 3. Minimal fat stranding in the left paracolic gutter which may indicate colit is. Clinical correlation and follow-up advise
[2024-09-07 14:26] LABS: Hematocrit 47.5 % (42.0-52.0); Hemoglobin 16.4 g/dL (14.0-18.0); Immature Granulocyte Percent A 0.5 % (0-0.5); Lymphocytes Absolute Auto 0.82 K/mm3 (0.9-3.2); Mean Corpuscular HGB Conc 34.5 g/dl (32-36); Mean Corpuscular Hemoglobin 30.3 pg (26-34); Mean Corpuscular Volume 87.8 fl (80-100); Nucleated Red Blood Cells Absolute Auto 0.000 K/mm3 (0.0-0.012); Nucleated Red Blood Cells Perc 0.0 % (0.0-0.2); Platelet Count Result 315 k/mm3 (150-375); Red Blood Count 5.41 M/mm3 (4.6-6.20); White Blood Count 19.4 K/mm3 (4.5-10.0)
--- NOTE | 2024-09-07 14:29 | ED_ITS ---
HPI - Nausea/Vomiting/Diarrhea General Chief complaint: Nausea/Vomiting/Diarrhea Stated complaint: n/v/d, dizzy Time Seen by Provider: 09/07/24 13:30 Source: patient Mode of arrival: ambulatory Limitations: no limitations History of Present Illness HPI Narrative: Patient is a 23-year-old male who presents the ED with report of nausea, vomiting, diarrhea. Patient reports symptoms began around 3am this morning. He has been having multiple episodes of emesis. Has not been able to keep down any food or drink. Feels very dehydrated, weak, dizzy. Reports diffuse lower abdominal pain. Denies known fevers. Reports history of similar symptoms several years ago. Denies recent bad food exposure that he is aware of. Related Data Home Medications ?Medication ?Instructions ?Recorded ?Confirmed ?Last Taken ?Type propranolol 10 mg tablet 1 tablet PO BID 09/05/21 09/05/21 08/30/21 History Allergies Allergy/AdvReac Type Severity Reaction Status Date / Time No Known Allergies Allergy Verified 09/04/21 11:38 Review of Systems 2 Review of Systems: All systems reviewed & are unremarkable except as noted in HPI. All systems reviewed & are unremarkable except as noted in HPI and below PMFSH Past Medical History Medical History Heart palpitations Surgical History Surgical History No pertinent past surgical history Exam 2 Narrative: GENERAL: Ill-appearing, thin, actively vomiting on exam, in mild acute distress. HEAD: Normocephalic, atraumatic. RESPIRATORY: Airway patent, respirations nonlabored. Clear to auscultation bilaterally, no rales, rhonchi, wheezing. CARDIOVASCULAR: Regular rate and rhythm without murmurs, rubs, or gallops. ABDOMINAL: Soft, diffuse tenderness throughout lower abdomen, nondistended. Normoactive BS. MUSCULOSKELETAL: Moves all extremities. No gross deformities. SKIN: Warm, dry, somewhat pale NEURO: A&O X3. Speech clear. No ataxic movements. PSYCHIATRIC: Appropriate mood and affect. Normal interaction. Course Vital Signs Vital signs: Vital Signs Temperature 97.5 F L 09/07/24 14:40 Pulse Rate 65 09/07/24 14:40 Respiratory Rate 20 09/07/24 14:40 Blood Pressure 109/52 L 09/07/24 14:40 Pulse Oximetry 100 09/07/24 14:40 Temperature 97.5 F L 09/07/24 14:40 Pulse Rate 70 09/07/24 17:56 Respiratory Rate 16 09/07/24 17:56 Blood Pressure 119/74 09/07/24 17:56 Pulse Oximetry 100 09/07/24 17:56 MDM - Nausea/Vomiting/Diarrhea MDM Narrative Medical decision making narrative: Patient presented to ED nausea, vomiting, diarrhea that began this morning. Feels very weak and dehydrated. Blood pressure borderline upon arrival, though patient very thin. Heart rate within normal range. Fluids initiated. Patient actively vomiting on my exam. Laboratory studies with white blood cell count of 19.4. Neutrophil predominance. No bandemia. CMP with bicarb of 18, anion gap of 17. Patient denies history of diabetes. Blood sugars 160. Fluids are ongoing. Likely reactive. Kidney function is stable. Magnesium was low 1.5. Given IV replacement. Normal LFTs and lipase. Initial lactic acid was 5.3. Fluids are ongoing. UA with evidence of dehydration, no signs of infection. Urine drug screen pending. Ethanol pending. ABG was obtained and with significant respiratory alkalosis. Suspicious for hyperventilation. Fluids are ongoing. Will repeat CT scan of abdomen/pelvis was obtained and showing evidence of colitis. No other surgical findings. Will treat for such given profound leukocytosis and lactic acidosis. Blood cx obtained. Rocephin/flagyl initiated. Repeat lactic pending Repeat ABG pending Patient has been given 3 L of fluid, Zofran, magnesium replacement, Benadryl, Reglan, haldol. He is still vomiting on re-evaluation. Discussed admission for continued hydration, nausea management, IV antibiotics. Discussed case with Rachael [facility] hospitalist, accepted patient for admission. Patient in agreement with plan and need for admission. Medical Records Attestation: I reviewed the patient's medical records. Lab Data Attestation: I reviewed the patient's lab results. 09/07/24 14:16 09/07/24 14:16 Labs: Lab Results 09/07/24 09/07/24 09/07/24 Range/Units 14:16 15:07 15:59 WBC 19.4 H (4.5-10.0) K/mm3 RBC 5.41 (4.6-6.20) M/mm3 Hgb 16.4 (14.0-18.0) g/dL Hct 47.5 (42.0-52.0) % MCV 87.8 (80-100) fl MCH 30.3 (26-34) pg MCHC 34.5 (32-36) g/dl RDW 11.9 (11.5-14.5) % Plt Count 315 (150-375) k/mm3 MPV 10.0 (7.4-10.4) fl Immature Gran % (Auto) 0.5 (0-0.5) % Neut % (Auto) 90.3 H (45.5-73.1) % Lymph % (Auto) 4.2 L (18.3-44.2) % [place] % (Auto) 4.7 (2.6-8.5) % Eos % (Auto) 0.1 (0-4.4) % Baso % (Auto) 0.2 (0.2-1.2) % Lymph # (Auto) 0.82 L (0.9-3.2) K/mm3 [place] # (Auto) 0.9 H (0.1-0.6) K/mm3 Eos # (Auto) 0.0 (0-0.3) K/mm3 Baso # (Auto) 0.0 (0.0-0.1) K/mm3 Abs Immat Gran (auto) 0.10 H (0.00-0.031) K/mm3 Absolute Neuts (auto) 17.5 H (1.3-6.7) K/mm3 Absolute Nucleated RBC 0.000 (0.0-0.012) K/mm3 Nucleated RBC % 0.0 (0.0-0.2) % Methemoglobin 0.3 (0-1.5) %THb Sodium 141 (137-145) mmol/L Potassium 3.6 (3.4-5.0) mmol/L Chloride 106 (98-107) mmol/L Carbon Dioxide 18 L (22-30) mmol/L Anion Gap 17 H (4-12) mmol/L BUN 19 (9-20) mg/dL Creatinine 0.88 (0.7-1.3) mg/dL Estim Creat Clear Calc Not Reportable Estimated GFR > 60 (59 - ) Glucose 160 H (65-110) mg/dL Hemoglobin A1c Lactic Acid 5.3 H* (0.7-2.0) mmol/L Calcium 10.5 H (8.4-10.2) mg/dL Magnesium 1.5 L (1.6-2.3) mg/dL Total Bilirubin 2.1 H (0.2-1.3) mg/dL AST 46 (17-59) U/L ALT 42 (6-50) U/L Alkaline Phosphatase 61 (38-126) U/L Total Protein 8.6 H (6.3-8.2) g/dL Albumin 5.3 H (3.5-5.1) g/dL Lipase 46 (23-300) U/L Urine Color Dark yellow (Yellow) Urine Appearance Clear (Clear) Urine pH 8.5 (5.0-9.0) Ur Specific [place] 1.043 H (1.001-1.035) Urine Protein 1+ H (Negative) mg/dL Urine Glucose (UA) Negative (Negative) mg/dL Urine Ketones 1+ H (Negative) mg/dL Ur Blood (Man) Negative (Negative) Urine Nitrate Negative (Negative) Urine Bilirubin Negative (Negative) Urine Urobilinogen 0.2 (<2.0) mg/dL Add Ur Microanalysis Reviewed Leukocyte Esterase Rfl Negative (Negative) SOFIA/UL Urine RBC 0-2 (0-2) /hpf Urine WBC 0-5 (0-3) /hpf Ur Squamous Epith Cells None seen (Few) /hpf Urine Bacteria None seen /hpf Urine Casts 6-10 Urine Opiates Screen Pending Urine Methadone Screen Pending Ur Barbiturates Screen Pending Ur Phencyclidine Scrn Pending Ur Amphetamine Screen Pending U Benzodiazepines Scrn Pending Urine Cocaine Screen Pending U Cannabinoids Screen Pending Ethyl Alcohol Pending 09/07/24 Range/Units 17:24 WBC (4.5-10.0) K/mm3 RBC (4.6-6.20) M/mm3 Hgb (14.0-18.0) g/dL Hct (42.0-52.0) % MCV (80-100) fl MCH (26-34) pg MCHC (32-36) g/dl RDW (11.5-14.5) % Plt Count (150-375) k/mm3 MPV (7.4-10.4) fl Immature Gran % (Auto) (0-0.5) % Neut % (Auto) (45.5-73.1) % Lymph % (Auto) (18.3-44.2) % [place] % (Auto) (2.6-8.5) % Eos % (Auto) (0-4.4) % Baso % (Auto) (0.2-1.2) % Lymph # (Auto) (0.9-3.2) K/mm3 [place] # (Auto) (0.1-0.6) K/mm3 Eos # (Auto) (0-0.3) K/mm3 Baso # (Auto) (0.0-0.1) K/mm3 Abs Immat Gran (auto) (0.00-0.031) K/mm3 Absolute Neuts (auto) (1.3-6.7) K/mm3 Absolute Nucleated RBC (0.0-0.012) K/mm3 Nucleated RBC % (0.0-0.2) % Methemoglobin (0-1.5) %THb Sodium (137-145) mmol/L Potassium (3.4-5.0) mmol/L Chloride (98-107) mmol/L Carbon Dioxide (22-30) mmol/L Anion Gap (4-12) mmol/L BUN (9-20) mg/dL Creatinine (0.7-1.3) mg/dL Estim Creat Clear Calc Estimated GFR (59 - ) Glucose (65-110) mg/dL Hemoglobin A1c Pending Lactic Acid Pending (0.7-2.0) mmol/L Calcium (8.4-10.2) mg/dL Magnesium (1.6-2.3) mg/dL Total Bilirubin (0.2-1.3) mg/dL AST (17-59) U/L ALT (6-50) U/L Alkaline Phosphatase (38-126) U/L Total Protein (6.3-8.2) g/dL Albumin (3.5-5.1) g/dL Lipase (23-300) U/L Urine Color (Yellow) Urine Appearance (Clear) Urine pH (5.0-9.0) Ur Specific [place] (1.001-1.035) Urine Protein (Negative) mg/dL Urine Glucose (UA) (Negative) mg/dL Urine Ketones (Negative) mg/dL Ur Blood (Man) (Negative) Urine Nitrate (Negative) Urine Bilirubin (Negative) Urine Urobilinogen (<2.0) mg/dL Add Ur Microanalysis Leukocyte Esterase Rfl (Negative) SOFIA/UL Urine RBC (0-2) /hpf Urine WBC (0-3) /hpf Ur Squamous Epith Cells (Few) /hpf Urine Bacteria /hpf Urine Casts Urine Opiates Screen Urine Methadone Screen Ur Barbiturates Screen Ur Phencyclidine Scrn Ur Amphetamine Screen U Benzodiazepines Scrn Urine Cocaine Screen U Cannabinoids Screen Ethyl Alcohol ABG Data ABG results: 09/07/24 15:07 Puncture Site Right radial ABG pH 7.639 H* ABG pCO2 14.6 L* ABG pO2 121.1 H ABG PO2/FiO2 Ratio 5.77 ABG HCO3 15.3 L ABG O2 Saturation 99.0 ABG O2 Content 21.7 ABG Base Excess -1.8 A-a Gradient 11.1 Oxyhemoglobin 97.6 Carboxyhemoglobin 1.0 Reduced Hemoglobin 1.1 Total Hemoglobin 15.7 O2 Delivery Device Room air O2 Liters/Min Not Reportable FiO2 21 Attestation: I personally reviewed and interpreted this ABG as follows: Imaging Data Attestation: I personally reviewed and interpreted this imaging study as follows: Radiologist's impression: ITS Impressions Abdomen/Pelvis CT 09/07/24 16:29 IMPRESSION: 1. No evidence of appendicitis, diverticulitis or intestinal obstruction. 2. Hepatomegaly. 3. Minimal fat stranding in the left paracolic gutter which may indicate colitis. Clinical correlation and follow-up advise Discharge Plan Discharge Clinical Impression: Colitis, Lactic acidosis, Dehydration, Hypomagnesemia, Respiratory alkalosis Sepsis Qualifiers: Sepsis type: sepsis due to unspecified organism Sepsis acute organ dysfunction status: unspecified Qualified Code(s): A41.9 - Sepsis, unspecified organism Nausea and vomiting Qualifiers: Vomiting type: unspecified Qualified Code(s): R11.2 - Nausea with vomiting, unspecified Patient Disposition: Still a Patient Condition: Stable Patient Language: Sloven[place] Prescriptions: No Action pantoprazole [Protonix] 40 mg tablet,delayed release (DR/EC) 40 mg PO QAM 28 Days Qty: 28 0RF propranolol 10 mg tablet 1 tablet PO BID cyclobenzaprine 10 mg tablet 10 mg PO TID PRN (Reason: muscle spasm) Qty: 14 0RF ibuprofen 600 mg tablet 600 mg PO TID Qty: 20 0RF ondansetron 4 mg tablet,disintegrating 4 mg PO Q8H Qty: 14 0RF ciprofloxacin HCl 500 mg tablet 500 mg PO Q12H Qty: 10 0RF metronidazole 500 mg tablet 500 mg PO Q12H Qty: 10 0RF famotidine 20 mg tablet 20 mg PO DAILY Qty: 14 0RF Follow-up/Referrals: Hill,NIURKA Randall [Primary Care Provider] -
[2024-09-07 14:47] LABS: Alanine Aminotransferase 42 U/L (6-50); Albumin Level 5.3 g/dL (3.5-5.1); Alkaline Phosphatase 61 U/L (38-126); Anion Gap 17 mmol/L (4-12); Aspartate Amino Transferase 46 U/L (17-59); Bilirubin,Total 2.1 mg/dL (0.2-1.3); Blood Urea Nitrogen 19 mg/dL (9-20); Calcium 10.5 mg/dL (8.4-10.2); Carbon Dioxide 18 mmol/L (22-30); Chloride 106 mmol/L (98-107); Estimated Glomerular Filt Rate > 60; Glucose 160 mg/dL (65-110); Lipase 46 U/L (23-300); Magnesium 1.5 mg/dL (1.6-2.3); Potassium 3.6 mmol/L (3.4-5.0); Sodium 141 mmol/L (137-145); Total Protein 8.6 g/dL (6.3-8.2)
[2024-09-07] MEDS: ONDANSETRON INJ 4 MG/2 ML VIAL IV PUSH (15:06)
[2024-09-07] MEDS: SODIUM CHLORIDE 0.9% IV 1,000 ML 999 ML IV CONT ×3 (15:06→16:46)
[2024-09-07] MEDS: FAMOTIDINE 20 MG/2 ML VIAL IV PUSH ×2 (15:06→20:50)
[2024-09-07] MEDS: MAGNESIUM SULF 2 GM/WATER 50ML 2 GM/50 ML BAG IVPB (15:09)
[2024-09-07 15:10] LABS: Alveolar/Arterial O2 Gradient 11.1 mmHg; Carboxyhemoglobin 1.0 % THb (0-2.0); Fractional Inspired Oxygen 21 %; HCO3 ABG 15.3 mEq/l (22.0-26.0); Methemoglobin ABG 0.3 %THb (0-1.5); Oxygen Content ABG 21.7 %vol (16.0-22.0); Oxygen Saturation ABG 99.0 % (95.0-100.0); PO2 ABG 121.1 mmHg (80.0-100.0); PO2 FiO2 Ratio Arterial Blood 5.77 %; Reduced Hemoglobin 1.1 %THb (0-5.0)
[2024-09-07 15:11] LABS: PCO2 ABG 14.6 mmHg (35.0-45.0)
[2024-09-07 15:12] LABS: Modified Allen's Test Pass; Site Drawn RIGHT RADIAL
[2024-09-07 16:23] LABS: Add Urine Microscopic? YES; Appearance Urine Clear (Clear); Glucose Urine UA Negative (Negative); Leukocyte Esterase Ur Negative LEU/UL (Negative); Need Manual Microscopic Reviewed; Nitrate Urine Negative (Negative); Specific Grav Ur 1.043 (1.001-1.035)
[2024-09-07] MEDS: METOCLOPRAMIDE HCL INJ 10 MG/2 ML VIAL IV PUSH (16:28)
[2024-09-07] MEDS: metroNIDAZOLE 500 MG/ISO 100ML 500 MG/100 ML BAG 100 MG IVPB (18:11)
[2024-09-07] MEDS: HALOPERIDOL LACTATE 5 MG/ML VIAL IM (18:12)
[2024-09-07] MEDS: cefTRIAXone 1 GM in SODIUM CHLORIDE 0.9% IV 50 ML 100 ML IVPB (18:12)
--- NOTE | 2024-09-07 18:14 | PCRCNOTE ---
ABG delayed until patient gets more meds for nausea.
[2024-09-07 19:45] LABS: Hemoglobin A1C 5.1 % (<5.7)
--- NOTE | 2024-09-07 20:12 | PM.IMHP ---
H&P: HPI History of Present Illness Date/Time: 09/07/24 20:12 Chief Complaint: Nausea vomiting diarrhea abdominal pain Narrative: This is a 23-year-old male with PMH active marijuana use, tobacco abuse, prior cocaine and psilocybin abuse, gastritis/esophagitis, hepatomegaly who presents to [facility] on 09/07/2024 with a complaint of nausea, lower abdominal pain, nonbloody vomiting, loose nonbloody stools since 3:00 a.m. this started with nausea and abdominal pain and then vomiting and diarrhea shortly thereafter. He has not traveled recently. Is accompanied by his girlfriend who he lives with and she is not ill, they have been eating the same thing. The patient reports eating very spicy food. Of note he does report he has had mucousy diarrhea for a long time. Of note, patient had ER visit here on 08/27/[address] A [address] abdomen pelvis demonstrated mild hepatomegaly with periportal edema, mild esophagitis/gastritis and colitis. He was sent home after fluid resuscitation also prescribed ciprofloxacin and Flagyl. ER evaluation demonstrated soft blood pressure is 91/42 improvement of 104/50. Otherwise vitals within normal limits. Laboratory eval demonstrated WBC 19.4, in ABG with a pH is 7.64, pCO2 14, PO2 121, bicarb 15.3, anion gap 17, lactic acid 5.3 improved to 2.7, hemoglobin A1c 5.1, magnesium 1.5, urinalysis with 1+ protein and ketones. Urine drug screen currently pending due to laboratory delays. A repeat CT abdomen and pelvis with contrast today demonstrates hepatomegaly, minimal fat stranding in the left pericolic gutter which may indicate colitis. Patient received diphenhydramine, metoclopramide, isotonic saline bolus, ceftriaxone and metronidazole, Haldol, magnesium, Zofran, famotidine. Review of Systems Review of Systems: All systems reviewed & are unremarkable except as noted in HPI and below (Subjective/HPI) [facility] Past Medical History Medical History Heart palpitations Surgical History Surgical History No pertinent past surgical history Meds Home Medications and Allergies Home Medications ?Medication ?Instructions ?Recorded ?Confirmed ?Type pantoprazole 40 mg tablet,delayed 40 mg PO QAM 4 weeks #28 tabs 09/04/21 Rx release (Protonix) cyclobenzaprine 10 mg tablet 10 mg PO TID PRN muscle spasm #14 09/05/21 Rx tabs ibuprofen 600 mg tablet 600 mg PO TID #20 tabs 09/05/21 Rx propranolol 10 mg tablet 1 tablet PO BID 09/05/21 09/05/21 History ondansetron 4 mg disintegrating 4 mg PO Q8H #14 tabs 03/13/22 Rx tablet ciprofloxacin HCl 500 mg tablet 500 mg PO Q12H #10 tabs 08/27/24 Rx famotidine 20 mg tablet 20 mg PO DAILY #14 tabs 08/27/24 Rx metronidazole 500 mg tablet 500 mg PO Q12H #10 tabs 08/27/24 Rx Allergies Allergy/AdvReac Type Severity Reaction Status Date / Time No Known Allergies Allergy Verified 09/04/21 11:38 Vital Signs Vital Signs - 24 hr 09/07/24 14:40 09/07/24 15:15 09/07/24 16:30 Temperature 97.5 F L Pulse Rate 65 64 66 Respiratory Rate 20 14 13 Blood Pressure 109/52 L 117/59 L 91/42 L Pulse Oximetry 100 100 100 09/07/24 17:56 09/07/24 19:14 Temperature 98.6 F Pulse Rate 70 69 Respiratory Rate 16 16 Blood Pressure 119/74 104/50 L Pulse Oximetry 100 97 Exam Const: General: comfortable and no acute distress Other: A&O x3 HENMT: Mouth: Yes moist mucous membranes Eyes: Pupils: Equal, round and reactive pupils present Neck: Neck: supple Resp: Effort & Inspection: normal respiratory effort Auscultation: clear to auscultation bilaterally Cardio: Rate: regular rate Rhythm: regular rhythm Heart sounds: no gallops, no murmurs and no rubs GI: Inspection: non-distended GI Palp: Yes Soft to palpation and No Tenderness to palpation present (GI) Auscultation: normal bowel sounds : General: Yes bladder normal to palpation Neuro: Motor exam (neuro): 5/5 motor strength present throughout Extrem: General: no edema H&P: Results Labs Labs: Short CBC 09/07/24 Range/Units 14:16 WBC 19.4 H (4.5-10.0) K/mm3 Hgb 16.4 (14.0-18.0) g/dL Hct 47.5 (42.0-52.0) % Plt Count 315 (150-375) k/mm3 BMP 09/07/24 14:16 Sodium 141 Potassium 3.6 Chloride 106 Carbon Dioxide 18 L BUN 19 Creatinine 0.88 Glucose 160 H Calcium 10.5 H Liver Function 09/07/24 Range/Units 14:16 Total Bilirubin 2.1 H (0.2-1.3) mg/dL AST 46 (17-59) U/L ALT 42 (6-50) U/L Alkaline Phosphatase 61 (38-126) U/L Albumin 5.3 H (3.5-5.1) g/dL Urine 09/07/24 Range/Units 15:59 Urine Color Dark yellow (Yellow) Urine Appearance Clear (Clear) Urine pH 8.5 (5.0-9.0) Ur Specific [place] 1.043 H (1.001-1.035) Urine Protein 1+ H (Negative) mg/dL Urine Glucose (UA) Negative (Negative) mg/dL Assessment and Plan Assessment and plan (1) Mucoid diarrhea: Code(s): K52.9 - Noninfective gastroenteritis and colitis, unspecified Status: Acute (2) Colitis: Code(s): K52.9 - Noninfective gastroenteritis and colitis, unspecified Status: Acute (3) Respiratory alkalosis with metabolic alkalosis: Code(s): E87.3 - Alkalosis Status: Acute (4) Nausea and vomiting: Qualifiers: Vomiting type: unspecified Qualified Code(s): R11.2 - Nausea with vomiting, unspecified Code(s): R11.2 - Nausea with vomiting, unspecified Status: Acute (5) Lactic acidosis: Code(s): E87.20 - Acidosis, unspecified Status: Acute (6) Dehydration: Code(s): E86.0 - Dehydration Status: Acute (7) Hypomagnesemia: Code(s): E83.42 - Hypomagnesemia Status: Acute (8) Sepsis: Qualifiers: Sepsis acute organ dysfunction status: unspecified Sepsis type: sepsis due to unspecified organism Qualified Code(s): A41.9 - Sepsis, unspecified organism Code(s): A41.9 - Sepsis, unspecified organism Status: Acute Plan This is a 23-year-old male with PMH active marijuana use, tobacco abuse, prior cocaine and psilocybin abuse, gastritis/esophagitis, hepatomegaly who presents to [facility] on 09/07/2024 with a complaint of nausea, lower abdominal pain, nonbloody vomiting, loose nonbloody stools since 3:00 a.m. this started with nausea and abdominal pain and then vomiting and diarrhea shortly thereafter. He has not traveled recently. Is accompanied by his girlfriend who he lives with and she is not ill, they have been eating the same thing. The patient reports eating very spicy food. Of note he does report he has had mucousy diarrhea for a long time. Of note, patient had ER visit here on 08/27/[address] for [address] A [address] abdomen pelvis demonstrated mild hepatomegaly with periportal edema, mild esophagitis/gastritis and colitis. He was sent home after fluid resuscitation also prescribed ciprofloxacin and Flagyl. ER evaluation demonstrated soft blood pressure is 91/42 improvement of 104/50. Otherwise vitals within normal limits. Laboratory eval demonstrated WBC 19.4, in ABG with a pH is 7.64, pCO2 14, PO2 121, bicarb 15.3, anion gap 17, lactic acid 5.3 improved to 2.7, hemoglobin A1c 5.1, magnesium 1.5, urinalysis with 1+ protein and ketones. Urine drug screen currently pending due to laboratory delays. A repeat CT abdomen and pelvis with contrast today demonstrates hepatomegaly, minimal fat stranding in the left pericolic gutter which may indicate colitis. Patient received diphenhydramine, metoclopramide, isotonic saline bolus, ceftriaxone and metronidazole, Haldol, magnesium, Zofran, famotidine. ----- Reports feeling much better after ER treatment. Admission to the medical floor on 09/07/2024 with telemetry. Stool studies ordered. Continue ceftriaxone and Flagyl. Blood cultures pending. Continue to trend white count. Trend lactic acidosis. Repeat VBG in the a.m., the patient has politely refused to have an ABG done. Patient reports he was hyperventilating while he had nausea because it would help to subside vomiting. This is likely the reason for his respiratory alkalosis combined with metabolic alkalosis. Magnesium replaced, continue to trend. Pepcid Full code. SCDs. Clear liquid diet. Saline infusion. Hospitalist MIPS Advance Care Plan I have confirmed that the patient's Advanced Care Plan is present, code status is documented, or surrogate decision maker is listed in patient medical record.: Yes Medication Reconciliation I have utilized all available resources to obtain, update and review the patients current medications (includes all prescriptions, OTC, herbals, cannabis, and nutritional supplements).: Yes
--- NOTE | 2024-09-07 20:48 | ADMGEN ---
This patient, Galdino Kuo, was admitted to Medical Room 246-. Patient/family oriented to hospital policies and general routines including ID bracelet, bed and alarms, visiting hours, pain management, procedures, bathroom and other care routines, personal items, smoking policy, room service/diet, and visiting hours. Information on how to activate the Rapid Response Team has been discussed. Patient/Family are encouraged to report perceived risks to care and to ask questions if they do not understand what they are told or what they should do.
[2024-09-07] MEDS: SODIUM CHLORIDE 0.9% IV 1,000 ML 125 ML IV CONT (20:50)
--- NOTE | 2024-09-07 22:05 | PCRCNOTE ---
patient refused abg and stated that the provider said that one would be completed in the am; vbg ordered for 0500
[2024-09-08] VITALS (9 sets, daily range): BP systolic 116–121; BP diastolic 58–62; PULSE 61–76; RESP 14–18; TEMP 36.6–36.8; O2SAT 95–100; BMI 18.1
[2024-09-08] MEDS: SODIUM CHLORIDE 0.9% IV 1,000 ML 125 ML IV CONT ×3 (04:50→23:39)
[2024-09-08 05:09] LABS: Fractional Inspired Oxygen 21 %; HCO3 VBG 20.7 mEq/l (24.0-30.0); PCO2 VBG 32.7 mmHg (42.0-48.0); PO2 VBG 61.7 mmHg (35.0-45.0)
[2024-09-08 05:19] LABS: pH VBG 7.420 (7.300-7.400)
[2024-09-08] MEDS: metroNIDAZOLE 500 MG/ISO 100ML 500 MG/100 ML BAG 100 MG IVPB ×3 (05:22→21:11)
[2024-09-08 05:33] LABS: Alanine Aminotransferase 18 U/L (6-50); Albumin Level 3.6 g/dL (3.5-5.1); Alkaline Phosphatase 39 U/L (38-126); Anion Gap 6 mmol/L (4-12); Aspartate Amino Transferase 31 U/L (17-59); Bilirubin,Total 1.1 mg/dL (0.2-1.3); Blood Urea Nitrogen 12 mg/dL (9-20); Calcium 8.8 mg/dL (8.4-10.2); Carbon Dioxide 21 mmol/L (22-30); Chloride 113 mmol/L (98-107); Estimated CRCL calculation 113 ml/min; Estimated Glomerular Filt Rate > 60; Glucose 98 mg/dL (65-110); Magnesium 2.0 mg/dL (1.6-2.3); Potassium 3.8 mmol/L (3.4-5.0); Sodium 140 mmol/L (137-145); Total Protein 5.9 g/dL (6.3-8.2)
[2024-09-08 06:09] LABS: Hematocrit 36.4 % (42.0-52.0); Hemoglobin 12.2 g/dL (14.0-18.0); Immature Granulocyte Percent A 0.5 % (0-0.5); Lymphocytes Absolute Auto 1.48 K/mm3 (0.9-3.2); Mean Corpuscular HGB Conc 33.5 g/dl (32-36); Mean Corpuscular Hemoglobin 30.4 pg (26-34); Mean Corpuscular Volume 90.8 fl (80-100); Nucleated Red Blood Cells Absolute Auto 0.000 K/mm3 (0.0-0.012); Nucleated Red Blood Cells Perc 0.0 % (0.0-0.2); Platelet Count Result 217 k/mm3 (150-375); Red Blood Count 4.01 M/mm3 (4.6-6.20); White Blood Count 11.1 K/mm3 (4.5-10.0)
[2024-09-08 07:11] LABS: Procalcitonin 0.2 ng/mL
--- NOTE | 2024-09-08 07:17 | P.PNIM_ITS ---
Progress Note: A&P Assessment and Plan (1) Sepsis: Qualifiers: Sepsis acute organ dysfunction status: unspecified Sepsis type: sepsis due to unspecified organism Qualified Code(s): A41.9 - Sepsis, unspecified o rganism Code(s): A41.9 - Sepsis, unspecified organism Status: Acute Assessment and Plan: * Meets SIRS criteria: Tachycardia, leukocytosis * lactic acid: 5.3 -> 2.7 -> 0.6 * suspected source: Colitis * UA: Specific gravity 1.043, 1+ protein, 1+ ketones, otherwise normal * Abdomen/pelvis CT: No evidence of appendicitis, diverticulitis, or intestinal obstruction. Hepatomegaly, omental fat stranding in the left pericolic gutter which may indicate colitis * Blood cultures pending * 09/08: Leukocytosis improving, no longer tachycardic (2) Colitis: Code(s): K52.9 - Noninfective gastroenteritis and colitis, unspecified Status: Acute Assessment and Plan: * CT abdomen/pelvis: No evidence of appendicitis, diverticulitis, or intestinal obstruction. Hepatomegaly, omental fat stranding in the left pericolic gutter which may indicate colitis * Monitor vital signs, I&Os, track stool output, watch for bloody stools, neuro status and patient is a fall risk * Monitor serum electrolytes and CBC * Gentle IV fluid resuscitation * Ceftriaxone 1 gm, Flagyl 500 mg t.i.d. * Diet: Full liquid, advance tolerated * Famotidine 20 mg IV q.12hr, Zofran 4 mg p.r.n. * P.r.n. pain control, morphine (3) Mucoid diarrhea: Code(s): K52.9 - Noninfective gastroenteritis and colitis, unspecified Status: Acute Assessment and Plan: * Likely secondary to problem 2 (4) Respiratory alkalosis with metabolic alkalosis: Code(s): E87.3 - Alkalosis Status: Acute Assessment and Plan: * Likely secondary to hyperventilating due to nausea/vomiting (5) Lactic acidosis: Code(s): E87.20 - Acidosis, unspecified Status: Acute Assessment and Plan: * LA: 5.3 -> 2.7 -> 0.6 * Likely secondary to excessive emesis, colitis * IV fluid hydration in ER * Resolved 09/08 (6) Dehydration: Code(s): E86.0 - Dehydration Status: Acute Assessment and Plan: * Secondary to excessive emesis * Emesis has subsided at this * IV fluid hydration (7) Hypomagnesemia: Code(s): E83.42 - Hypomagnesemia Status: Acute Assessment and Plan: * In ED: Mg 1.5 * Administered magnesium sulfate * Repeat magnesium 2.0 on 09/08 Subjective Date/time seen: 09/08/24 07:17 Interval history: 23-year-old male with PMH active marijuana use, tobacco abuse, prior cocaine and psilocybin abuse, gastritis/esophagitis, hepatomegaly who presents to [facility] on 09/07/2024 with a complaint of nausea, lower abdominal pain, nonbloody vomiting, loose nonbloody stools since 3:00 a.m. this started with nausea and abdominal pain and then vomiting and diarrhea shortly thereafter. 09/08/2024 Patient sitting comfortably in bed at time of examination. Still some slight leukocytosis with a WBC of 11.1, however this is down from 19.4 yesterday. GI consulted regarding colitis/lower abdominal pain. Agree with adding C diff, calprotectin and stool culture. C diff negative, other tests are pending at this time. We will continue with antibiotics but there is no indication for inpatient colonoscopy. This and the hepatomegaly finding on the CT scan can be worked up as an outpatient. We will work on advancing diet as tolerated. Patient otherwise has no comments or concerns at this time. Review of Systems Review of Systems: All systems reviewed & are unremarkable except as noted in HPI and below Exam Const: General: comfortable and no acute distress Other: A&O x3 HENMT: Mouth: Yes moist mucous membranes Eyes: Pupils: Equal, round and reactive pupils present Neck: Neck: supple Resp: Effort & Inspection: normal respiratory effort Auscultation: clear to auscultation bilaterally Cardio: Rate: regular rate Rhythm: regular rhythm Heart sounds: no gallops, no murmurs and no rubs GI: Inspection: non-distended Auscultation: normal bowel sounds : General: Yes bladder normal to palpation Neuro: Cranial nerves: Yes Equal, round and reactive pupils present Motor exam (neuro): 5/5 motor strength present throughout Extrem: General: no edema Objective Data Vital Signs Vital Signs: Vital Signs - 24 hr 09/07/24 14:40 09/07/24 15:15 09/07/24 16:30 Temperature 97.5 F L Pulse Rate 65 64 66 Respiratory Rate 20 14 13 Blood Pressure 109/52 L 117/59 L 91/42 L Pulse Oximetry 100 100 100 Oxygen Delivery 09/07/24 17:56 09/07/24 19:14 09/07/24 20:23 Temperature 98.6 F 98.5 F Pulse Rate 70 69 65 Respiratory Rate 16 16 16 Blood Pressure 119/74 104/50 L 91/65 L Pulse Oximetry 100 97 98 Oxygen Delivery 09/07/24 20:55 09/07/24 21:03 09/07/24 22:00 Temperature 98.4 F Pulse Rate 68 112 H Respiratory Rate 18 Blood Pressure 106/47 L Pulse Oximetry 91 Oxygen Delivery Room Air 09/08/24 00:00 09/08/24 04:00 09/08/24 06:00 Temperature 97.9 F Pulse Rate 67 61 68 Respiratory Rate 18 Blood Pressure 116/62 Pulse Oximetry 99 Oxygen Delivery Intake/Output Intake/Output: Intake & Output 09/05/24 09/06/24 09/07/24 09/08/24 23:59 23:59 23:59 23:59 Intake Total 3200 1100 Balance 3200 1100 Meds/Results Medications: Active Medications Generic Name Dose Route Start Last Admin Trade Name Freq PRN Reason Stop Dose Admin Acetaminophen 650 mg 09/07/24 18:22 Acetaminophen 650 Mg Suppository RECTAL Q6H PRN Mild Pain (1-3) or Fever Dextrose 12.5 gm 09/07/24 18:22 Dextrose 50% 25 Gm/50 Ml Syringe IV PUSH PRN PRN Hypoglycemia Protocol Famotidine 20 mg 09/07/24 21:00 09/07/24 20:50 Famotidine 20 Mg/2 Ml Vial IV PUSH 20 mg Q12HR LILLIE Administration Glucagon 1 mg 09/07/24 18:22 Glucagon For Inj 1 Mg Vial IM PRN PRN Hypoglycemia Protocol Glucose 15 gm 09/07/24 18:22 Glucose Oral Gel 15 Gm Of Glucse In 37.5 Gm Tube PO PRN PRN Hypoglycemia Protocol Ceftriaxone Sodium 1 gm/ 50 mls @ 100 mls/hr 09/08/24 18:00 Sodium Chloride IVPB Q24H LILLIE Metronidazole 500 mg in 100 mls @ 100 mls/hr 09/08/24 06:00 09/08/24 06:26 Flagyl 500 Mg/Iso Soln 100 Ml IVPB Infused Q8H LILLIE Infusion Sodium Chloride 1,000 mls @ 125 mls/hr 09/07/24 18:25 09/08/24 04:50 Normal Saline Iv IV CONT 125 mls/hr .Q8H LILLIE Administration Dextrose 1,000 mls @ 100 mls/hr 09/07/24 18:22 Dextrose 5% 1,000 Ml IVPB PRN PRN Hypoglycemia Protocol Morphine Sulfate 2 mg 09/07/24 18:22 Morphine Sulfate (*Crx) 2 Mg/Ml Inj IV PUSH Q2H PRN Pain Rated 7-10 Ondansetron HCl 4 mg 09/07/24 18:22 Ondansetron Inj 4 Mg/2 Ml Vial IV PUSH Q4H PRN Nausea Radiology Results: ITS Impressions Abdomen/Pelvis CT 09/07/24 16:29 IMPRESSION: 1. No evidence of appendicitis, diverticulitis or intestinal obstruction. 2. Hepatomegaly. 3. Minimal fat stranding in the left paracolic gutter which may indicate colitis. Clinical correlation and follow-up advise Labs Labs: Laboratory Results - last 24 hr 09/07/24 09/07/24 09/07/24 14:16 15:07 15:59 WBC 19.4 H RBC 5.41 Hgb 16.4 Hct 47.5 MCV 87.8 MCH 30.3 MCHC 34.5 RDW 11.9 Plt Count 315 MPV 10.0 Immature Gran % (Auto) 0.5 Neut % (Auto) 90.3 H Lymph % (Auto) 4.2 L [place] % (Auto) 4.7 Eos % (Auto) 0.1 Baso % (Auto) 0.2 Lymph # (Auto) 0.82 L [place] # (Auto) 0.9 H Eos # (Auto) 0.0 Baso # (Auto) 0.0 Abs Immat Gran (auto) 0.10 H Absolute Neuts (auto) 17.5 H Absolute Nucleated RBC 0.000 Nucleated RBC % 0.0 Puncture Site Right radial ABG pH 7.639 H* ABG pCO2 14.6 L* ABG pO2 121.1 H ABG PO2/FiO2 Ratio 5.77 ABG HCO3 15.3 L ABG O2 Saturation 99.0 ABG O2 Content 21.7 ABG Base Excess -1.8 VBG pH VBG pCO2 VBG pO2 VBG HCO3 A-a Gradient 11.1 Oxyhemoglobin 97.6 Carboxyhemoglobin 1.0 Methemoglobin 0.3 Reduced Hemoglobin 1.1 Total Hemoglobin 15.7 O2 Delivery Device Room air O2 Liters/Min Not Reportable FiO2 21 Sodium 141 Potassium 3.6 Chloride 106 Carbon Dioxide 18 L Anion Gap 17 H BUN 19 Creatinine 0.88 Estim Creat Clear Calc Not Reportable Estimated GFR > 60 Glucose 160 H Hemoglobin A1c Lactic Acid 5.3 H* Calcium 10.5 H Magnesium 1.5 L Total Bilirubin 2.1 H AST 46 ALT 42 Alkaline Phosphatase 61 Total Protein 8.6 H Albumin 5.3 H Lipase 46 Procalcitonin Urine Color Dark yellow Urine Appearance Clear Urine pH 8.5 Ur Specific [place] 1.043 H Urine Protein 1+ H Urine Glucose (UA) Negative Urine Ketones 1+ H Ur Blood (Man) Negative Urine Nitrate Negative Urine Bilirubin Negative Urine Urobilinogen 0.2 Add Ur Microanalysis Reviewed Leukocyte Esterase Rfl Negative Urine RBC 0-2 Urine WBC 0-5 Ur Squamous Epith Cells None seen Urine Bacteria None seen Urine Casts 6-10 Ur Barbiturates Screen Negative Ur Phencyclidine Scrn Negative Urine Cocaine Screen Negative Ethyl Alcohol < 10 09/07/24 09/08/24 09/08/24 17:24 05:00 05:02 WBC RBC Hgb Hct MCV MCH MCHC RDW Plt Count MPV Immature Gran % (Auto) Neut % (Auto) Lymph % (Auto) [place] % (Auto) Eos % (Auto) Baso % (Auto) Lymph # (Auto) [place] # (Auto) Eos # (Auto) Baso # (Auto) Abs Immat Gran (auto) Absolute Neuts (auto) Absolute Nucleated RBC Nucleated RBC % Puncture Site ABG pH ABG pCO2 ABG pO2 ABG PO2/FiO2 Ratio ABG HCO3 ABG O2 Saturation ABG O2 Content ABG Base Excess VBG pH 7.420 H* VBG pCO2 32.7 L VBG pO2 61.7 H VBG HCO3 20.7 L A-a Gradient Oxyhemoglobin Carboxyhemoglobin Methemoglobin Reduced Hemoglobin Total Hemoglobin O2 Delivery Device Room air O2 Liters/Min Not Reportable FiO2 21 Sodium 140 Potassium 3.8 Chloride 113 H Carbon Dioxide 21 L Anion Gap 6 BUN 12 D Creatinine 0.79 Estim Creat Clear Calc 113 Estimated GFR > 60 Glucose 98 Hemoglobin A1c 5.1 Lactic Acid 2.7 H 0.6 L Calcium 8.8 Magnesium 2.0 Total Bilirubin 1.1 AST 31 ALT 18 Alkaline Phosphatase 39 Total Protein 5.9 L Albumin 3.6 Lipase Procalcitonin 0.2 Urine Color Urine Appearance Urine pH Ur Specific [place] Urine Protein Urine Glucose (UA) Urine Ketones Ur Blood (Man) Urine Nitrate Urine Bilirubin Urine Urobilinogen Add Ur Microanalysis Leukocyte Esterase Rfl Urine RBC Urine WBC Ur Squamous Epith Cells Urine Bacteria Urine Casts Ur Barbiturates Screen Ur Phencyclidine Scrn Urine Cocaine Screen Ethyl Alcohol 09/08/24 06:05 WBC 11.1 H RBC 4.01 L Hgb 12.2 L D Hct 36.4 L MCV 90.8 MCH 30.4 MCHC 33.5 RDW 12.1 Plt Count 217 MPV 9.8 Immature Gran % (Auto) 0.5 Neut % (Auto) 80.5 H Lymph % (Auto) 13.3 L [place] % (Auto) 5.1 Eos % (Auto) 0.4 Baso % (Auto) 0.2 Lymph # (Auto) 1.48 [place] # (Auto) 0.6 Eos # (Auto) 0.1 Baso # (Auto) 0.0 Abs Immat Gran (auto) 0.06 H Absolute Neuts (auto) 9.0 H Absolute Nucleated RBC 0.000 Nucleated RBC % 0.0 Puncture Site ABG pH ABG pCO2 ABG pO2 ABG PO2/FiO2 Ratio ABG HCO3 ABG O2 Saturation ABG O2 Content ABG Base Excess VBG pH VBG pCO2 VBG pO2 VBG HCO3 A-a Gradient Oxyhemoglobin Carboxyhemoglobin Methemoglobin Reduced Hemoglobin Total Hemoglobin O2 Delivery Device O2 Liters/Min FiO2 Sodium Potassium Chloride Carbon Dioxide Anion Gap BUN Creatinine Estim Creat Clear Calc Estimated GFR Glucose Hemoglobin A1c Lactic Acid Calcium Magnesium Total Bilirubin AST ALT Alkaline Phosphatase Total Protein Albumin Lipase Procalcitonin Urine Color Urine Appearance Urine pH Ur Specific [place] Urine Protein Urine Glucose (UA) Urine Ketones Ur Blood (Man) Urine Nitrate Urine Bilirubin Urine Urobilinogen Add Ur Microanalysis Leukocyte Esterase Rfl Urine RBC Urine WBC Ur Squamous Epith Cells Urine Bacteria Urine Casts Ur Barbiturates Screen Ur Phencyclidine Scrn Urine Cocaine Screen Ethyl Alcohol
[2024-09-08 07:57] LABS: Cannabinoid Screen Urine Positive (Negative)
[2024-09-08] MEDS: FAMOTIDINE 20 MG/2 ML VIAL IV PUSH ×2 (09:58→21:11)
--- NOTE | 2024-09-08 10:54 | P.CONGI_ITS ---
Assessment and Plan Assessment and plan (1) Lower abdominal pain: Code(s): R10.30 - Lower abdominal pain, unspecified Status: Acute Plan 1. Colitis/lower abdominal pain/nausea/vomiting: Patient has never had a colonoscopy. Patient seen in [facility] 08/27/2024 and was diagnosed with treated for gastritis and colitis with a course of Cipro and Flagyl. CT at that time showed transverse and descending colonic wall edema as can be seen with colitis. During his ER visit he was noted to have B/P at 89/62 that normalized prior to D/C. He presented to the ER again 09/07 with complaints of nausea, vomiting and diarrhea. CT showed minimal fat stranding in the left paracolic gutter which may indicate colitis. B/P at one point was 91/42 in the ER. Patient admitted for sepsis, low magnesium and respiratory alkalosis. Prior to initial diagnosis of colitis on the 6 he was having lower abdominal pain and loose stools but denied diarrhea. Patient states that after 3 days of antibiotics his abdominal pain resolved. Patient states that his diarrhea and increased bowel frequency and lower abdominal pain started yesterday. He denies any signs of GI bleeding. He has had 1 bowel movement since admission which was liquid. Abdominal pain, nausea and vomiting improved. H/H normal on admission with Hgb 16 and Hct 48. Labs today show Hgb 12 and Hct 36 likely dilutional. WBC's 19-->11, lactic acid 0.6 and procalcitonin 0.2. BMP normal, LFT's and lipase normal. DDX: Acute infectious/inflammatory process versus IBD versus ischemic * C-Diff negative. Calprotectin and stool culture still pending * Continue antibiotics * No indication for inpatient colonoscopy, will arrange for outpatient colonoscopy 2. Hepatomegaly: Noted on [address]. No indication of hepatic steatosis on CT. LFT's normal. * Further work up as outpatient Thank you very much for allowing me to share in the care of this very nice patient. This report may have been done utilizing a voice recognition system. Attempts have been made to correct errors. However, there may be uncorrected grammatical, spelling, and recognition errors present. GI Consult Note Consult date/time: 09/08/24 10:54 Reason for consult: Colitis HPI: Galdino Kuo is a 23 year old male with no significant past medical surgical history who was seen at [facility] August 27 with complaints of abdominal pain and was diagnosed with gastritis and colitis and started on a course of Cipro, Flagyl, and famotidine. Patient presented back to the emergency room yesterday with complaints of nausea vomiting and diarrhea. Patient admitted for sepsis, colitis, respiratory alkalosis, and hypomagnesia. GI has been consulted for colitis. Patient states that prior to his ER visit on the he was having lower abdominal pain and loose stools but no diarrhea. Patient states that after 3 days of antibiotics his abdominal pain resolved and stools remained the same consistency. Patient states that his normal is 1-2 soft non urgent bowel movements daily. He states the he stated having lower abdominal pain, nausea, vomiting and liquid stools and increased bowel frequency yesterday. Since admission he has had one liquid stool and abdominal pain has improved. Denies nausea, vomiting, bloating, odynophagia, dysphagia, reflux, regurgitation, early satiety, appetite or weight loss or appetite loss. Denies constipation, hematochezia, or melena he denies any recent illnesses, travel, or exposure to other people. He denies any NSAID, aspirin, or anti coag family history negative for CRC or IBD. Denies alcohol use admits to marijuana use, tobacco abuse, prior cocaine and psilocybin abuse. ENDOSCOPY HISTORY: Patient has no prior EGD or colonoscopy Hx. LABS AND STOOL STUDIES: Labs 09/08/2024: Sodium 140, potassium 3.8, BUN 12, creatinine 0.79, GFR >60, calcium 8.8, lactic acid 0.6, procalcitonin 0.2 WBC 11, Hgb 12, Hct 36, MCV 91, platelets 217 Total bilirubin 1.1, AST 31, ALT 18, Alkaline Phos 39, albumin 3.6, lipase 46 IMAGING: CT abd/pelvis w/contrast 09/07/2024: VISUALIZED LOWER CHEST: Normal. UPPER ABDOMINAL ORGANS: Liver: Hepatomegaly. Periportal edema is again demonstrated with lesser degree than the previous study Gallbladder: Normal. Spleen: Normal. Stomach/duodenum: Normal. Pancreas: Normal. Adrenals: Normal. Kidneys: Normal. PELVIC ORGANS: The bladder is normal. BOWEL AND MESENTERY: Colon: No evidence of diverticulitis.. Minimal fat stranding seen adjacent to the descending colon which may indicate colitis. Follow-up advised.Appendix is not demonstrated. Small Bowel: Normal. No obstruction. Peritoneum/mesentery: No free air or free fluid. No mesenteric lymphadenopathy. RETROPERITONEUM: Normal aorta. No retroperitoneal lymphadenopathy. MUSCULOSKELETAL: Superficial soft tissues: The superficial soft tissues are normal. Bones: Normal spine. IMPRESSION: 1. No evidence of appendicitis, diverticulitis or intestinal obstruction. 2. Hepatomegaly. 3. Minimal fat stranding in the left paracolic gutter which may indicate colitis. Clinical correlation and follow-up advise CT abd/pelvis w/contrast 08/27/2024: IMPRESSION: Mild hepatomegaly with periportal edema, correlate with liver labs. Mild esophagitis/gastritis. Transverse and descending colonic wall edema as can be seen with colitis. Review of Systems 2 Constitutional: Constitutional: Reports as per HPI ENT: Reports as per HPI Cardiovascular: Cardiovascular: Reports as per HPI, Denies chest pain and Denies dyspnea Respiratory: Respiratory: Denies cough and Denies dyspnea Gastrointestinal: Gastrointestinal: Reports as per HPI Musculoskeletal: Musculoskeletal: Reports as per HPI Integumentary/Breasts: Skin/Breast: Reports as per HPI Psychiatric: Psychiatric: Reports as per HPI Endocrine: Endocrine: Reports no additional endocrine complaints Hematologic/Lymphatic: Hematologic/Lymphatic: Reports no additional hematologic/lymphatic complaints COUNTS INCLUDE 234 BEDS AT THE [facility] Past Medical History Medical History Heart palpitations Surgical History Surgical History No pertinent past surgical history Family History Family History (Updated 09/07/24 @ 20:56 by Shanice Banda RN) Other Cerebrovascular accident Diabetes mellitus Grandparent Breast cancer Social History Social History Smoking status: Former smoker Alcohol intake: never Substance use: current Substance use type: marijuana Do You Feel Safe in your Home?: Yes Lack of Transportation: No Lack of Food: Never True Current Housing: I Have Housing Concerned About Future Housing: No Difficulty Paying Gas/Electric Bills: No Difficulty Paying for Meds: No Currently Unemployed: No Education: Grade School Difficulty w/ Childcare or Family Care: No Spiritual care concerns: No Meds Home Medications and Allergies Home Medications ?Medication ?Instructions ?Recorded ?Confirmed ?Type pantoprazole 40 mg tablet,delayed 40 mg PO QAM 4 weeks #28 tabs 09/04/21 09/07/24 Rx release (Protonix) Allergies Allergy/AdvReac Type Severity Reaction Status Date / Time No Known Allergies Allergy Verified 09/04/21 11:38 Vital Signs Vital Signs - 24 hr 09/07/24 14:40 09/07/24 15:15 09/07/24 16:30 Temperature 97.5 F L Pulse Rate 65 64 66 Respiratory Rate 20 14 13 Blood Pressure 109/52 L 117/59 L 91/42 L Pulse Oximetry 100 100 100 Oxygen Delivery 09/07/24 17:56 09/07/24 19:14 09/07/24 20:23 Temperature 98.6 F 98.5 F Pulse Rate 70 69 65 Respiratory Rate 16 16 16 Blood Pressure 119/74 104/50 L 91/65 L Pulse Oximetry 100 97 98 Oxygen Delivery 09/07/24 20:55 09/07/24 21:03 09/07/24 22:00 Temperature 98.4 F Pulse Rate 68 112 H Respiratory Rate 18 Blood Pressure 106/47 L Pulse Oximetry 91 Oxygen Delivery Room Air 09/08/24 00:00 09/08/24 04:00 09/08/24 06:00 Temperature 97.9 F Pulse Rate 67 61 68 Respiratory Rate 18 Blood Pressure 116/62 Pulse Oximetry 99 Oxygen Delivery 09/08/24 08:00 Temperature Pulse Rate Respiratory Rate Blood Pressure Pulse Oximetry Oxygen Delivery Room Air Exam 2 Const: General: cooperative, healthy appearing, comfortable, no acute distress and well developed Orientation/consciousness: oriented to person, oriented to place, oriented to time and patient oriented x3 HENMT: Head: normal to inspection, normocephalic and atraumatic Mouth: Yes Normal oral and palatal mucosa present and Yes moist mucous membranes Eyes: General: appearance normal, both eyes and all related structures C onjunctivae: conjunctivae normal Sclera: sclerae normal Pupils: Equal, round and reactive pupils present Neck: Neck: normal visual inspection Chest: Chest palpation & inspection: normal inspection of the chest Resp: Effort & Inspection: normal respiratory effort and able to speak in complete sentences Auscultation: clear to auscultation bilaterally Cardio: Jugular venous distension: no JVD Rate: regular rate Rhythm: r egular rhythm Heart sounds: S1 normal heart sound present and S2 normal heart sound present GI: Inspection: normal to inspection GI Palp: Yes Soft to palpation and Yes No hepatosplenomegaly present Auscultation: normal bowel sounds Rectal Exam: deferred Skin: General skin exam: normal color and no rashes or lesions noted Neuro: General: oriented to person, oriented to place, oriented to time and patient oriented x3 Cranial nerves: Yes Equal, round and reactive pupils present Speech: normal speech Extrem: General: normal to inspection and no clubbing, cyanosis or edema Psych: Appearance: grossly normal and well kempt Affect: normal affect Results Labs 09/08/24 06:05 09/08/24 05:02 Labs: Short CBC 09/07/24 09/08/24 Range/Units 14:16 06:05 WBC 19.4 H 11.1 H (4.5-10.0) K/mm3 Hgb 16.4 12.2 L D (14.0-18.0) g/dL Hct 47.5 36.4 L (42.0-52.0) % Plt Count 315 217 (150-375) k/mm3 BMP 09/07/24 09/08/24 14:16 05:02 Sodium 141 140 Potassium 3.6 3.8 Chloride 106 113 H Carbon Dioxide 18 L 21 L BUN 19 12 D Creatinine 0.88 0.79 Glucose 160 H 98 Calcium 10.5 H 8.8 Liver Function 09/07/24 09/08/24 Range/Units 14:16 05:02 Total Bilirubin 2.1 H 1.1 (0.2-1.3) mg/dL AST 46 31 (17-59) U/L ALT 42 18 (6-50) U/L Alkaline Phosphatase 61 39 (38-126) U/L Albumin 5.3 H 3.6 (3.5-5.1) g/dL Urine 09/07/24 Range/Units 15:59 Urine Color Dark yellow (Yellow) Urine Appearance Clear (Clear) Urine pH 8.5 (5.0-9.0) Ur Specific [place] 1.043 H (1.001-1.035) Urine Protein 1+ H (Negative) mg/dL Urine Glucose (UA) Negative (Negative) mg/dL
[2024-09-08 11:53] LABS: Toxigenic C. Diff NEGATIVE (NEGATIVE)
[2024-09-08] MEDS: cefTRIAXone 1 GM in SODIUM CHLORIDE 0.9% IV 50 ML 100 ML IVPB (17:39)
[2024-09-09] VITALS: PULSE 54
[2024-09-09 04:00] VITALS: PULSE 52
[2024-09-09] MEDS: metroNIDAZOLE 500 MG/ISO 100ML 500 MG/100 ML BAG 100 MG IVPB (05:38)
[2024-09-09] MEDS: ONDANSETRON INJ 4 MG/2 ML VIAL IV PUSH (05:53)
[2024-09-09 06:00] VITALS: BP 150/73; PULSE 60; RESP 18; TEMP 36.3; O2SAT 100
--- NOTE | 2024-09-09 06:44 | ECG_ITS ---
Test Date: 2024-09-09 06:56:00 Measurements Intervals Reading Rate: 52 P: 73 UT: 151 QRS: -23 QRSD: 89 T: 45 QT: 465 QTc: 433 Interpretive Statements SINUS BRADYCARDIA WITH SINUS ARRHYTHMIA BORDERLINE LEFT AXIS DEVIATION [QRS AXIS < -20] ABNORMAL ECG Compared to ECG 08/27/2024 17:56:50 No significant changes Electronically Signed On 09-09-2024 08:56:35 CDT by Allen Wright M.D.
--- NOTE | 2024-09-09 06:50 | PM.EVENT ---
Event Note Event Note Event Note: pt has been doing well all night. ate at 3 am, did not feel like he was bloated or food was not passing. abruptly, around 630am he began nausea and vomiting, mucoid vomitus only, retching. no diarrhea. epigastric pain to palpation similar to presenation (and caused him to vomit again). hyperventilating just as he described on presentation, confirming respiratory alkalosis on admission. zofran given, did not work, pt reports does not work. giving benadryl 25mg iv x1 and reglan 10mg IV x1 which worked for him on presentation. consider haldol if needed. checking ekg for qtc assesment. changing pepcid to protonix 40mg iv bid to start first dose now. unclear if this is infectious etiology. consider recalling GI for further evaluation/endoscopy.
--- NOTE | 2024-09-09 07:02 | P.PNIM_ITS ---
Progress Note: A&P Assessment and Plan (1) Sepsis: Qualifiers: Sepsis acute organ dysfunction status: unspecified Sepsis type: sepsis due to unspecified organism Qualified Code(s): A41.9 - Sepsis, unspecified o rganism Code(s): A41.9 - Sepsis, unspecified organism Status: Acute Assessment and Plan: * Meets SIRS criteria: Tachycardia, leukocytosis * lactic acid: 5.3 -> 2.7 -> 0.6 * suspected source: Colitis * UA: Specific gravity 1.043, 1+ protein, 1+ ketones, otherwise normal * Abdomen/pelvis CT: No evidence of appendicitis, diverticulitis, or intestinal obstruction. Hepatomegaly, omental fat stranding in the left pericolic gutter which may indicate colitis * Blood cultures pending * 09/08: Leukocytosis improving, no longer tachycardic (2) Colitis: Code(s): K52.9 - Noninfective gastroenteritis and colitis, unspecified Status: Acute Assessment and Plan: * CT abdomen/pelvis: No evidence of appendicitis, diverticulitis, or intestinal obstruction. Hepatomegaly, omental fat stranding in the left pericolic gutter which may indicate colitis * Monitor vital signs, I&Os, track stool output, watch for bloody stools, neuro status and patient is a fall risk * Monitor serum electrolytes and CBC * Gentle IV fluid resuscitation * Ceftriaxone 1 gm, Flagyl 500 mg t.i.d. * Diet: Full liquid, advance tolerated * Famotidine 20 mg IV q.12hr, Zofran 4 mg p.r.n. * P.r.n. pain control, morphine (3) Mucoid diarrhea: Code(s): K52.9 - Noninfective gastroenteritis and colitis, unspecified Status: Acute Assessment and Plan: * Likely secondary to problem 2 (4) Respiratory alkalosis with metabolic alkalosis: Code(s): E87.3 - Alkalosis Status: Acute Assessment and Plan: * Likely secondary to hyperventilating due to nausea/vomiting (5) Lactic acidosis: Code(s): E87.20 - Acidosis, unspecified Status: Acute Assessment and Plan: * LA: 5.3 -> 2.7 -> 0.6 * Likely secondary to excessive emesis, colitis * IV fluid hydration in ER * Resolved 09/08 (6) Dehydration: Code(s): E86.0 - Dehydration Status: Acute Assessment and Plan: * Secondary to excessive emesis * Emesis has subsided at this * IV fluid hydration (7) Hypomagnesemia: Code(s): E83.42 - Hypomagnesemia Status: Acute Assessment and Plan: * In ED: Mg 1.5 * Administered magnesium sulfate * Repeat magnesium 2.0 on 09/08 Subjective Date/time seen: 09/09/24 07:02 Interval history: 23-year-old male with PMH active marijuana use, tobacco abuse, prior cocaine and psilocybin abuse, gastritis/esophagitis, hepatomegaly who presents to [facility] on 09/07/2024 with a complaint of nausea, lower abdominal pain, nonbloody vomiting, loose nonbloody stools since 3:00 a.m. this started with nausea and abdominal pain and then vomiting and diarrhea shortly thereafter. 09/09/2024 Patient sitting comfortably in bed at time of examination. Review of Systems Review of Systems: All systems reviewed & are unremarkable except as noted in HPI and below Exam Const: General: comfortable and no acute distress Other: A&O x3 HENMT: Mouth: Yes moist mucous membranes Eyes: Pupils: Equal, round and reactive pupils present Neck: Neck: supple Resp: Effort & Inspection: normal respiratory effort Auscultation: clear to auscultation bilaterally Cardio: Rate: regular rate Rhythm: regular rhythm Heart sounds: no gallops, no murmurs and no rubs GI: Inspection: non-distended Auscultation: normal bowel sounds : General: Yes bladder normal to palpation Neuro: Cranial nerves: Yes Equal, round and reactive pupils present Motor exam (neuro): 5/5 motor strength present throughout Extrem: General: no edema Objective Data Vital Signs Vital Signs: Vital Signs - 24 hr 09/08/24 08:00 09/08/24 08:00 09/08/24 12:00 Temperature Pulse Rate 63 64 Respiratory Rate Blood Pressure Pulse Oximetry Oxygen Delivery Room Air 09/08/24 14:00 09/08/24 16:00 09/08/24 20:00 Temperature 98.2 F Pulse Rate 70 63 Respiratory Rate 14 Blood Pressure 121/61 Pulse Oximetry 100 Oxygen Delivery Room Air 09/08/24 20:00 09/08/24 22:00 09/09/24 00:00 Temperature 97.8 F Pulse Rate 76 70 54 L Respiratory Rate 18 Blood Pressure 118/58 L Pulse Oximetry 95 Oxygen Delivery 09/09/24 04:00 09/09/24 06:00 Temperature 97.4 F L Pulse Rate 52 L 60 Respiratory Rate 18 Blood Pressure 150/73 H Pulse Oximetry 100 Oxygen Delivery Intake/Output Intake/Output: Intake & Output 09/06/24 09/07/24 09/08/24 09/09/24 23:59 23:59 23:59 23:59 Intake Total 3200 3620 Balance 3200 3620 Meds/Results Medications: Active Medications Generic Name Dose Route Start Last Admin Trade Name Freq PRN Reason Stop Dose Admin Acetaminophen 650 mg 09/07/24 18:22 Acetaminophen 650 Mg Suppository RECTAL Q6H PRN Mild Pain (1-3) or Fever Dextrose 12.5 gm 09/07/24 18:22 Dextrose 50% 25 Gm/50 Ml Syringe IV PUSH PRN PRN Hypoglycemia Protocol Glucose 15 gm 09/07/24 18:22 Glucose Oral Gel 15 Gm Of Glucse In 37.5 Gm Tube PO PRN PRN Hypoglycemia Protocol Ceftriaxone Sodium 1 gm/ 50 mls @ 100 mls/hr 09/08/24 18:00 09/08/24 17:39 Sodium Chloride IVPB 100 mls/hr Q24H LILLIE Administration Metronidazole 500 mg in 100 mls @ 100 mls/hr 09/08/24 06:00 09/09/24 05:38 Flagyl 500 Mg/Iso Soln 100 Ml IVPB 100 mls/hr Q8H LILLIE Administration Sodium Chloride 1,000 mls @ 125 mls/hr 09/07/24 18:25 09/08/24 23:39 Normal Saline Iv IV CONT 125 mls/hr .Q8H LILLIE Administration Dextrose 1,000 mls @ 100 mls/hr 09/07/24 18:22 Dextrose 5% 1,000 Ml IVPB PRN PRN Hypoglycemia Protocol Morphine Sulfate 2 mg 09/07/24 18:22 Morphine Sulfate (*Crx) 2 Mg/Ml Inj IV PUSH Q2H PRN Pain Rated 7-10 Ondansetron HCl 4 mg 09/07/24 18:22 09/09/24 05:53 Ondansetron Inj 4 Mg/2 Ml Vial IV PUSH 4 mg Q4H PRN Administration Nausea Pantoprazole Sodium 40 mg 09/09/24 06:45 Pantoprazole Sodium Iv 40 Mg Vial IV PUSH Q12HR [facility] Radiology Results: ITS Impressions Abdomen/Pelvis CT 09/07/24 16:29 IMPRESSION: 1. No evidence of appendicitis, diverticulitis or intestinal obstruction. 2. Hepatomegaly. 3. Minimal fat stranding in the left paracolic gutter which may indicate colitis. Clinical correlation and follow-up advise Labs Labs: Laboratory Results - last 24 hr 09/07/24 09/08/24 09/08/24 15:59 05:02 10:41 Procalcitonin 0.2 Urine Opiates Screen Negative Urine Methadone Screen Negative Ur Barbiturates Screen Negative Ur Phencyclidine Scrn Negative Ur Amphetamine Screen Negative U Benzodiazepines Scrn Negative Urine Cocaine Screen Negative U Cannabinoids Screen Positive A C. difficile (PCR) Negative
[2024-09-09 07:10] LABS: Hematocrit 40.0 % (42.0-52.0); Hemoglobin 13.6 g/dL (14.0-18.0); Immature Granulocyte Percent A 0.3 % (0-0.5); Lymphocytes Absolute Auto 1.82 K/mm3 (0.9-3.2); Mean Corpuscular HGB Conc 34.0 g/dl (32-36); Mean Corpuscular Hemoglobin 30.6 pg (26-34); Mean Corpuscular Volume 89.9 fl (80-100); Nucleated Red Blood Cells Absolute Auto 0.000 K/mm3 (0.0-0.012); Nucleated Red Blood Cells Perc 0.0 % (0.0-0.2); Platelet Count Result 213 k/mm3 (150-375); Red Blood Count 4.45 M/mm3 (4.6-6.20); White Blood Count 7.2 K/mm3 (4.5-10.0)
[2024-09-09] MEDS: METOCLOPRAMIDE HCL INJ 10 MG/2 ML VIAL IV PUSH (07:13)
[2024-09-09] MEDS: PANTOPRAZOLE SODIUM IV 40 MG VIAL IV PUSH (07:13)
[2024-09-09 07:25] LABS: Alanine Aminotransferase 22 U/L (6-50); Albumin Level 4.0 g/dL (3.5-5.1); Alkaline Phosphatase 48 U/L (38-126); Anion Gap 10 mmol/L (4-12); Aspartate Amino Transferase 33 U/L (17-59); Bilirubin,Total 1.1 mg/dL (0.2-1.3); Blood Urea Nitrogen 9 mg/dL (9-20); Calcium 9.1 mg/dL (8.4-10.2); Carbon Dioxide 21 mmol/L (22-30); Chloride 109 mmol/L (98-107); Estimated CRCL calculation 110 ml/min; Estimated Glomerular Filt Rate > 60; Glucose 107 mg/dL (65-110); Potassium 3.4 mmol/L (3.4-5.0); Sodium 140 mmol/L (137-145); Total Protein 6.6 g/dL (6.3-8.2)
--- NOTE | 2024-09-09 07:40 | PC.NURSE ---
Patient called at around 0545 complaining of nausea, and vomiting. Zofran given but the vomiting persisted. Pt called again to say he has started to feel the same symptoms he felt on admission that is nausea/vomiting, dizziness and the provider was called who came to assess the patient and ordered some labs, EKG, pantoprazole, Benadryl and metoclopramide.
[2024-09-09 08:00] VITALS: PULSE 64
[2024-09-09] MEDS: HALOPERIDOL LACTATE 5 MG/ML VIAL IV PUSH (08:23)
[2024-09-09] MEDS: SODIUM CHLORIDE 0.9% IV 1,000 ML 125 ML IV CONT (09:57)
--- NOTE | 2024-09-09 10:48 | P.PNGI_ITS ---
Progress Note: A&P Assessment and Plan (1) Nausea and vomiting: Qualifiers: Vomiting type: unspecified Qualified Code(s): R11.2 - Nausea with vomiting, unspecified Code(s): R11.2 - Nausea with vomiting, unspecified Status: Acute (2) Lower abdominal pain: Code(s): R10.30 - Lower abdominal pain, unspecified Status: Acute Plan The patient's primary symptom since admission was nausea, which led to breakfast refusal. He has not had diarrha exacerbation. He received intramuscular Haldol and is now asymptomatic. He denies abdominal pain, diarrhea, or vomiting. He expresses an urgent need to return home due to his employment and having four young children. Objectively, his response to antibiotics has been positive, with his white blood cell count normalizing today. He will be discharged home on the following regimen: * Levofloxacin 750 mg once daily for 5 days * Phenergan 25 mg every 8 hours as needed for nausea * Pantoprazole 40 mg every morning * he will contact our office on Wednesday for diagnostic colonoscopy shortly. Calprotectin levels and stool culture are pending and will check them as an outpatient. Subjective Date/time seen: 09/09/24 10:48 Objective Data Vital Signs Vital Signs: Vital Signs - 24 hr 09/08/24 12:00 09/08/24 14:00 09/08/24 16:00 Temperature 98.2 F Pulse Rate 64 70 63 Respiratory Rate 14 Blood Pressure 121/61 Pulse Oximetry 100 Oxygen Delivery 09/08/24 20:00 09/08/24 20:00 09/08/24 22:00 Temperature 97.8 F Pulse Rate 76 70 Respiratory Rate 18 Blood Pressure 118/58 L Pulse Oximetry 95 Oxygen Delivery Room Air 09/09/24 00:00 09/09/24 04:00 09/09/24 06:00 Temperature 97.4 F L Pulse Rate 54 L 52 L 60 Respiratory Rate 18 Blood Pressure 150/73 H Pulse Oximetry 100 Oxygen Delivery Intake/Output Intake/Output: Intake & Output 09/06/24 09/07/24 09/08/24 09/09/24 23:59 23:59 23:59 23:59 Intake Total 3200 3620 1000 Balance 3200 3620 1000 Meds/Results Medications: Active Medications Generic Name Dose Route Start Last Admin Trade Name Freq PRN Reason Stop Dose Admin Acetaminophen 650 mg 07/17/25 18:22 Acetaminophen 650 Mg Suppository RECTAL Q6H PRN Mild Pain (1-3) or Fever Dextrose 12.5 gm 09/07/24 18:22 Dextrose 50% 25 Gm/50 Ml Syringe IV PUSH PRN PRN Hypoglycemia Protocol Glucose 15 gm 09/07/24 18:22 Glucose Oral Gel 15 Gm Of Glucse In 37.5 Gm Tube PO PRN PRN Hypoglycemia Protocol Ceftriaxone Sodium 1 gm/ 50 mls @ 100 mls/hr 09/08/24 18:00 09/08/24 17:39 Sodium Chloride IVPB 100 mls/hr Q24H LILLIE Administration Metronidazole 500 mg in 100 mls @ 100 mls/hr 09/08/24 06:00 09/09/24 05:38 Flagyl 500 Mg/Iso Soln 100 Ml IVPB 100 mls/hr Q8H LILLIE Administration Sodium Chloride 1,000 mls @ 125 mls/hr 09/07/24 18:25 09/09/24 09:57 Normal Saline Iv IV CONT 125 mls/hr .Q8H LILLIE Administration Dextrose 1,000 mls @ 100 mls/hr 09/07/24 18:22 Dextrose 5% 1,000 Ml IVPB PRN PRN Hypoglycemia Protocol Morphine Sulfate 2 mg 09/07/24 18:22 Morphine Sulfate (*Crx) 2 Mg/Ml Inj IV PUSH Q2H PRN Pain Rated 7-10 Ondansetron HCl 4 mg 09/07/24 18:22 09/09/24 05:53 Ondansetron Inj 4 Mg/2 Ml Vial IV PUSH 4 mg Q4H PRN Administration Nausea Pantoprazole Sodium 40 mg 09/09/24 06:45 09/09/24 07:13 Pantoprazole Sodium Iv 40 Mg Vial IV PUSH 40 mg Q12HR LILLIE Administration Radiology Results: ITS Impressions Abdomen/Pelvis CT 09/07/24 16:29 IMPRESSION: 1. No evidence of appendicitis, diverticulitis or intestinal obstruction. 2. Hepatomegaly. 3. Minimal fat stranding in the left paracolic gutter which may indicate colitis. Clinical correlation and follow-up advise Labs Labs: Laboratory Results - last 24 hr 09/08/24 09/09/24 10:41 06:54 WBC 7.2 RBC 4.45 L Hgb 13.6 L Hct 40.0 L MCV 89.9 MCH 30.6 MCHC 34.0 RDW 12.0 Plt Count 213 MPV 10.0 Immature Gran % (Auto) 0.3 Neut % (Auto) 67.0 Lymph % (Auto) 25.4 [place] % (Auto) 5.6 Eos % (Auto) 1.4 Baso % (Auto) 0.3 Lymph # (Auto) 1.82 [place] # (Auto) 0.4 Eos # (Auto) 0.1 Baso # (Auto) 0.0 Abs Immat Gran (auto) 0.02 Absolute Neuts (auto) 4.8 Absolute Nucleated RBC 0.000 Nucleated RBC % 0.0 Sodium 140 Potassium 3.4 Chloride 109 H Carbon Dioxide 21 L Anion Gap 10 BUN 9 Creatinine 0.81 Estim Creat Clear Calc 110 Estimated GFR > 60 Glucose 107 Calcium 9.1 Total Bilirubin 1.1 AST 33 ALT 22 Alkaline Phosphatase 48 Total Protein 6.6 Albumin 4.0 C. difficile (PCR) Negative
--- NOTE | 2024-09-09 11:40 | P.DS_ITS ---
DS: Admitting Diagnosis Discharge Date 09/09/2024 Admitting Diagnosis Nausea and vomiting DS: Discharge Diagnosis Discharge Diagnosis (1) Sepsis: Qualifiers: Sepsis acute organ dysfunction status: unspecified Sepsis type: sepsis due to unspecified organism Qualified Code(s): A41.9 - Sepsis, unspecified organism Code(s): A41.9 - Sepsis, unspecified organism Status: Acute (2) Colitis: Code(s): K52.9 - Noninfective gastroenteritis and colitis, unspecified Status: Acute (3) Mucoid diarrhea: Code(s): K52.9 - Noninfective gastroenteritis and colitis, unspecified Status: Acute (4) Respiratory alkalosis with metabolic alkalosis: Code(s): E87.3 - Alkalosis Status: Acute (5) Lactic acidosis: Code(s): E87.20 - Acidosis, unspecified Status: Acute (6) Dehydration: Code(s): E86.0 - Dehydration Status: Acute (7) Hypomagnesemia: Code(s): E83.42 - Hypomagnesemia Status: Acute DS: Summary Hospital Course Reason for hospitalization: Nausea and vomiting Hospital Course: This is a 23-year-old male with PMH active marijuana use, tobacco abuse, prior cocaine and psilocybin abuse, gastritis/esophagitis, hepatomegaly who presents to [facility] on 09/07/2024 with a complaint of nausea, lower abdominal pain, nonbloody vomiting, loose nonbloody stools since 3:00 a.m. this started with nausea and abdominal pain and then vomiting and diarrhea shortly t hereafter. He has not traveled recently. Is accompanied by his girlfriend who he lives with and she is not ill, they have been eating the same thing. The patient reports eating very spicy food. Of note he does report he has had mucousy diarrhea for a long time. Of note, patient had ER visit here on 08/27/[address] A [address] abdomen pelvis demonstrated mild hepatomegaly with periportal edema, mild esophagitis/gastritis and colitis. He was sent home after fluid resuscitation also prescribed ciprofloxacin and Flagyl. ER evaluation demonstrated soft blood pressure is 91/42 improvement of 104/50. Otherwise vitals within normal limits. Laboratory eval demonstrated WBC 19.4, in ABG with a pH is 7.64, pCO2 14, PO2 121, bicarb 15.3, anion gap 17, lactic acid 5.3 improved to 2.7, hemoglobin A1c 5.1, magnesium 1.5, urinalysis with 1+ protein and ketones. Urine drug screen currently pending due to laboratory delays. A repeat CT abdomen and pelvis with contrast today demonstrates hepatomegaly, minimal fat stranding in the left pericolic gutter which may indicate colitis. Patient received diphenhydramine, metoclopramide, isotonic saline bolus, ceftriaxone and metronidazole, Haldol, magnesium, Zofran, famotidine. Patient was admitted for nausea/vomiting along with sepsis. GI was consulted regarding these issues, along with colitis seen on CT scan. Recommended adding on C diff, calprotectin and stool cultures. C diff was negative and calprotectin and stool cultures still pending. GI did not recommend an inpatient colonoscopy at this time in that the patient in outpatient setting to set this up. They recommend working up CT scan finding of hepatomegaly as outpatient. On 09/09 and, patient started endorsing abrupt worsening nausea/vomiting with no diarrhea. He was given Benadryl 25 mg IV along with Reglan 10 mg IV pain these somewhat alleviated the symptoms for the time being but ultimately came back. Patient was then given 25 mg although and endorsed complete subsiding of symptoms. Patient was evaluated myself and GI and at that time had complete subsiding of symptoms, denying any abdominal pain, diarrhea or vomiting. His white blood cell count normalized today and his response to index has been positive. He can safely be discharged home at this time. Planned for discharge home with appropriate follow-up in the outpatient setting with GI. Will discharge him levofloxacin 750 mg once daily for 5 days, Phenergan 20 mg every 8 hours needed for nausea, pantoprazole 40 mg every morning. Patient amenable to this plan, plan for discharge home at this time. Status at Discharge Functional status at discharge: independent ambulation Overall status at discharge: patient is back to baseline Time Spent with Patient Time attestation: Total time spent providing and/or coordinating discharge services: 42 Exam Narrative: GENERAL: Well-appearing, thin, in no acute distress. HEAD: Normocephalic, atraumatic. RESPIRATORY: Airway patent, respirations nonlabored. Clear to auscultation bilaterally, no rales, rhonchi, wheezing. CARDIOVASCULAR: Regular rate and rhythm without murmurs, rubs, or gallops. ABDOMINAL: Soft, nontender, nondistended. Normoactive BS. MUSCULOSKELETAL: Moves all extremities. No gross deformities. SKIN: Warm, dry, somewhat pale NEURO: A&O X3. Speech clear. No ataxic movements. PSYCHIATRIC: Appropriate mood and affect. Normal interaction. Const: Other: A&O x3 DS: Data Data Completed and Pending Labs on day of discharge: Labs from last 24 hours 09/09/24 09/08/24 06:54 10:41 WBC 7.2 RBC 4.45 L Hgb 13.6 L Hct 40.0 L MCV 89.9 MCH 30.6 MCHC 34.0 RDW 12.0 Plt Count 213 MPV 10.0 Immature Gran % (Auto) 0.3 Neut % (Auto) 67.0 Lymph % (Auto) 25.4 Cavalier % (Auto) 5.6 Eos % (Auto) 1.4 Baso % (Auto) 0.3 Lymph # (Auto) 1.82 Cavalier # (Auto) 0.4 Eos # (Auto) 0.1 Baso # (Auto) 0.0 Abs Immat Gran (auto) 0.02 Absolute Neuts (auto) 4.8 Absolute Nucleated RBC 0.000 Nucleated RBC % 0.0 Sodium 140 Potassium 3.4 Chloride 109 H Carbon Dioxide 21 L Anion Gap 10 BUN 9 Creatinine 0.81 Estim Creat Clear Calc 110 Estimated GFR > 60 Glucose 107 Calcium 9.1 Total Bilirubin 1.1 AST 33 ALT 22 Alkaline Phosphatase 48 Total Protein 6.6 Albumin 4.0 C. difficile (PCR) Negative Discharge Plan Discharge Attending physician on discharge: Ruddy Mitchell Consulting providers: Dioni Baker Discharging Clinician: Dioni Baker Anticipated Discharge Date/Time: 09/09/24 11:32 Patient Disposition: Home Activity: as tolerated Diet: heart healthy Discharge Instructions: Discharge disposition: Home, stable Take medications as prescribed. He will be prescribed levofloxacin 750 mg to be taken once daily for 5 total days. You will also be given Phenergan 25 mg to be taken every 8 hours as needed for nausea. You will be prescribed pantoprazole 40 mg to be taken every morning. Contact the GI office on Wednesday to schedule a diagnostic colonoscopy. Monitor blood pressures Take caution while standing, rising, or moving Change positions slowly taking a break between each position change If you standing feel dizzy sit back down and take a break Encouraged to continue with yearly vaccinations Return to the emergency department if he developed sudden shortness of breath, chest pain, nausea, vomiting, upset stomach or intractable diarrhea Return to the emergency department if you develop fever greater than 101.5 Follow-up with the primary care physician within 1-2 weeks Thank you for choosing [facility] for your healthcare needs Patient Instructions: Antibiotic Form Patient Language: Bengali Stand Alone Forms: General Discharge Information Follow-up/Referrals: Hill,NIURKA Randall [Primary Care Provider] - Heladio Ashton MD [Physician] - Discharge Medications: New levofloxacin 750 mg tablet 750 mg PO DAILY 5 Days Qty: 5 0RF promethazine 25 mg tablet 25 mg PO TID PRN (Reason: nausea and vomiting) 30 Days Qty: 90 0RF Continued pantoprazole [Protonix] 40 mg tablet,delayed release (DR/EC) 40 mg PO QAM 28 Days Qty: 28 0RF Date of admission: 09/07/24 18:22 Primary Care Provider: HillPrakash Admitting Provider: Camila Anthony Attending physician on admission: Camila Anthony Condition: Stable
[2024-09-12 08:08] LABS: Calprotectin, Fecal 345 ug/g (0-120)
== END 2024-09-09 14:20 | disposition home or self-care (01) ==
LOC: ANHED 18:35 → ANH2MED 09-08 06:47 → ANH3MEDSUR 09-11 08:38
PROVIDERS: General Practice; Physician Assistant; Admitting Provider Internal Medicine; Emergency Provider Physician Assistant; PCP Nurse Practitioner Family; Visit Provider Family Medicine
DX: K52.9 Noninfective gastroenteritis and colitis, unspecified (principal); A41.9 Sepsis, unspecified organism; E87.3 Alkalosis; E87.20 Acidosis, unspecified; E86.0 Dehydration; E83.42 Hypomagnesemia
CPT/HCPCS: 36415; 36600; 74177; 80053; 80307; 81001; 82077; 82375; 82803; 82805; 83036; 83050; 83605; 83690; 83735; 83993; 84145; 85018; 85025; 87040; 87045; 87046; 87177; 87427; 87493; 93005; 96361; 96365; 96366; 96367; 96372; 96374; 96375; 99285; G0378; G0379; J0696; J1200; J1630; J1836; J2405; J2470; J2765; J3475; J7030; Q9967